=== PATIENT | male | born 1935 | race Caucasian/White ===

== ENCOUNTER 2017-09-10 03:02 | Inpatient (IN) | payer MEDICARE, MEDICAID ==
[~2017-09-10] VITALS: Ht 167.6 cm; Wt 77.6 kg
[2017-09-10 03:05] VITALS: BP 160/69
[2017-09-10 03:47] LABS: BASOPHILS % (AUTO) 0.6 % (0.0-2.0); EOSINOPHILS % (AUTO) 2.2 % (0.0-3.0); HEMATOCRIT 36.5 % (42.0-52.0); HEMOGLOBIN 12.4 G/DL (14.2-18.0); MEAN CORPUSCULAR VOLUME 94 FL (80-99); MONOCYTES % (AUTO) 7.4 % (1.0-10.0); NEUTROPHILS % (AUTO) 75.8 % (45.0-75.0); PLATELET COUNT 160 K/UL (150-450); RED BLOOD COUNT 3.87 M/UL (4.70-6.10); RED CELL DISTRIBUTION WIDTH 13.7 % (11.6-14.8); WHITE BLOOD COUNT 12.2 K/UL (4.8-10.8)
[2017-09-10 03:52] LABS: ANION GAP 8 mmol/L (5-15); BLOOD UREA NITROGEN 34 mg/dL (7-18); CALCIUM 9.1 MG/DL (8.5-10.1); CARBON DIOXIDE 26 MMOL/L (21-32); CHLORIDE 104 MMOL/L (98-107); POTASSIUM 3.8 MMOL/L (3.5-5.1); SODIUM 137 MMOL/L (136-145)
[2017-09-10 03:57] LABS: ALANINE AMINOTRANSFERASE 25 U/L (12-78); ALBUMIN 3.2 G/DL (3.4-5.0); ALBUMIN/GLOBULIN RATIO 1.1 (1.0-2.7); ALKALINE PHOSPHATASE 59 U/L (46-116); ASPARTATE AMINO TRANSFERASE 14 U/L (15-37); BILIRUBIN,TOTAL 0.2 MG/DL (0.2-1.0)
[2017-09-10] MEDS ORDERED: Morphine Sulfate 4mg/ml Inj IVP ONE (04:15)
[2017-09-10] MEDS ORDERED: OMEGA 3 FISH O1 EAC1 PO (04:53)
[2017-09-10] MEDS ORDERED: CRESTOR10 M2 ORAL (04:53)
[2017-09-10] MEDS ORDERED: LYRICA50 MG ORAL (04:53)
[2017-09-10] MEDS ORDERED: ISOSORBIDE MONO60 M1 PO (04:54)
[2017-09-10] MEDS ORDERED: CORTIZONE 1028 GM TP (04:54)
[2017-09-10] MEDS ORDERED: DIPHENHYDRAMINE25 M1 ORAL (04:54)
[2017-09-10] MEDS ORDERED: ASPIRIN81 MG ORAL (04:54)
[2017-09-10] MEDS ORDERED: FERROUS SULFAT325 MG ORAL (04:54)
[2017-09-10] MEDS ORDERED: HYDRALAZINE HCL50 MG ORAL (04:54)
[2017-09-10] MEDS ORDERED: LEVOTHYROXINE25 MCG ORAL (04:54)
[2017-09-10] MEDS ORDERED: ATENOLOL50 MG ORAL (04:54)
[2017-09-10] MEDS ORDERED: FUROSEMIDE20 M1 ORAL (04:54)
[2017-09-10] MEDS ORDERED: TRADJENTA5 MG PO (04:54)
[2017-09-10] MEDS ORDERED: ALLOPURINOL100 M1 ORAL (04:54)
[2017-09-10] MEDS ORDERED: AMLODIPINE BESY10 MG ORAL (04:54)
[2017-09-10] MEDS ORDERED: CYMBALTA30 MG ORAL (04:54)
[2017-09-10] MEDS ORDERED: TERAZOSIN HCL10 MG ORAL (04:54)
[2017-09-10] MEDS ORDERED: GLIMEPIRIDE4 MG ORAL (04:54)
[2017-09-10 05:00] VITALS: BP 135/66
[2017-09-10] MEDS ORDERED: Ciprofloxacin 500mg tab ORAL ONE (05:30)
--- NOTE | 2017-09-10 05:36 | Emergency Room Report ---
History of Present Illness General Chief Complaint: Abdominal Pain Source: Patient Present Illness HPI Is an 81-year-old male with a history diabetes, high blood pressure and coronary disease. He presents with chief complaint of weakness and near syncope. The last 3 days he had profuse watery diarrhea. No recent antibiotics. Abdominal cramps. He was on the toilet having diarrhea. He stood up, he felt lightheaded and had near syncopal episode. No loss of consciousness. Better when he lies flat. Per EMS he was hypotensive. Better now. Allergies: Coded Allergies: MORPHINE (Verified Allergy, Unknown, 09/10/17) Patient History Past Medical History: see triage record, old chart reviewed, DM, CAD Past Surgical History: other Pertinent Family History: none Social History: Denies: smoking Immunizations: other Reviewed Nursing Documentation: PMH: Agreed, PSxH: Agreed Nursing Documentation-PMH Hx Cardiac Problems: Yes Hx Hypertension: Yes Hx Diabetes: Yes Review of Systems Constitutional: Reports: weakness Eye: Denies: eye pain, blurred vision ENT: Denies: ear pain, nose congestion, throat swelling Respiratory: Denies: cough, shortness of breath Cardiovascular: Denies: chest pain, palpitations Gastrointestinal: Reports: abdominal pain, diarrhea, Denies: nausea, vomiting Musculoskeletal: Denies: back pain, joint pain Skin: Denies: rash Neurological: Denies: headache, numbness Endocrine: Denies: increased thirst, increased urine Hematologic/Lymphatic: Denies: easy bruising All Other Systems: negative except mentioned in HPI Physical Exam Vital Signs Date Time Temp Pulse Resp B/P (MAP) Pulse Ox O2 Delivery O2 Flow Rate FiO2 09/10/17 02:52 97.9 79 18 157/64 98 Room Air vitals with high blood pressure Sp02 EP Interpretation: reviewed, normal General Appearance: well appearing, no apparent distress, alert Head: normocephalic, atraumatic Eyes: bilateral eye PERRL, bilateral eye EOMI ENT: hearing grossly normal, normal pharynx Neck: full range of motion, supple, no meningismus Respiratory: chest non-tender, lungs clear, normal breath sounds Cardiovascular #1: regular rate, rhythm, no murmur Gastrointestinal: normal bowel sounds, no mass, no organomegaly, no bruit, non- distended, tenderness - Diffuse Musculoskeletal: back normal, gait/station normal, normal range of motion Psychiatric: mood/affect normal Skin: warm/dry Medical Decision Making Diagnostic Impression: Primary Impression: Colitis, acute Additional Impressions: Dehydration PAM (acute kidney injury) Protracted diarrhea ER Course Patient presents with protracted diarrhea and dehydration. Near syncope probably secondary to prostatic hypotension. He felt better now. CT scan showed possible sigmoiditis. Antibiotics given. Will admit for IV hydration. Lab Results Impression labs with elevated BUN AND CREATININE EKG Diagnostic Results Rate: normal Rhythm: NSR ST Segments: no acute changes Rhythm Strip Diag. Results Rhythm Strip Time: 05:35 EP Interpretation: yes Rate: 97 Rhythm: NSR, no PVC's, no ectopy CT/MRI/US Diagnostic Results CT/MRI/US Diagnostic Results : Imaging Test Ordered: CT abdomen and pelvis Impression Read by radiologist. Enlarged prostate gland. Moderate colonic diverticulosis. Mild circumferential wall thickening of the sigmoid and rectum. Last Vital Signs Date Time Temp Pulse Resp B/P (MAP) Pulse Ox O2 Delivery O2 Flow Rate FiO2 09/10/17 03:05 97.8 70 17 160/69 97 Room Air Status: improved Disposition: ADMITTED INPATIENT Condition: Serious Referrals: NON PHYSICIAN (PCP) VEL COSME M.D. Sep 10, 2017 05:36
[2017-09-10 06:01] LABS: BILIRUBIN, URINE NEGATIVE (NEGATIVE); GLUCOSE, URINE (UA) NEGATIVE (NEGATIVE); KETONES,URINE NEGATIVE (NEGATIVE); LEUKOCYTE ESTERASE ,URINE 3+ (NEGATIVE); NITRITE,URINE NEGATIVE (NEGATIVE); PH,URINE 5 (4.5-8.0); PROTEIN,URINE 3+ (NEGATIVE); UROBILINOGEN,URINE NORMAL MG/DL (0.0-1.0)
[2017-09-10] MEDS ORDERED: Ketorolac 30mg Inj IV PRN (06:15)
[2017-09-10] MEDS ORDERED: Nitroglycerin Subl 0.4mg tab SL PRN (06:15)
[2017-09-10] MEDS ORDERED: Mylanta II UD 30ml ORAL PRN (06:15)
[2017-09-10] MEDS ORDERED: Miralax 17gm pkt ORAL PRN (06:15)
[2017-09-10 06:19] LABS: APPEARANCE,URINE CLOUDY; COLOR,URINE YELLOW
[2017-09-10 06:20] VITALS: BP 145/62
[2017-09-10] MEDS: NovoLOG Insulin Flexpen SUBQ SCH ×4 (06:30→21:25)
[2017-09-10] MEDS: Heparin 5000 units/ml inj SUBQ SCH ×2 (09:00→21:00)
[2017-09-10] MEDS: DULoxetine 30mg cap ORAL SCH (09:45)
[2017-09-10] MEDS: Allopurinol 100mg Tab ORAL SCH ×2 (09:46→17:44)
[2017-09-10] MEDS: HydrALAZINE 10mg Tab ORAL SCH ×2 (09:47→17:44)
[2017-09-10] MEDS: Lyrica 50mg cap ORAL SCH ×2 (09:47→21:26)
--- NOTE | 2017-09-10 10:30 | GI Initial Consult Note ---
Denise Muniz N.P. 09/10/17 1030: History of Present Illness General Date patient seen: Sep 10, 2017 Time patient seen: 10:22 Reason for Hospitalization: Abdominal Pain Referring physician: JARRED ZHOU Reason for Consultation: ABDOMINAL PAIN Present Illness HPI Is an 81-year-old male with a history diabetes, high blood pressure and coronary disease. He presents with chief complaint of weakness and near syncope. The last 3 days he had profuse watery diarrhea. No recent antibiotics. Abdominal cramps. He was on the toilet having diarrhea. He stood up, he felt lightheaded and had near syncopal episode. No loss of consciousness. Better when he lies flat. Per EMS he was hypotensive. Better now. GI consulted for abdominal pain. Pt seen on floor, awake A&Ox4 NAD with no active s/sx of N/V. Patient had complaints of water diarrhea x 3 days he described as "black" and with seldom periods of noted red blood. He has a history of prostate surgery approximately 2 months ago. His last colonoscopy was 5 years ago with some found colonic polyps. APCT today shows sigmoid, rectal wall thickening. Denies any unintentional weight loss or changes in dietary habits. No recent travels. He presents today with mild leukocytosis, mild anemia, and renal insufficiency. Home Meds Reported Medications Amlodipine Besylate* (AMLODIPINE BESYLATE*) 10 Mg Tablet, 0.5 TAB ORAL BID, TAB 09/10/17 Allopurinol* (ALLOPURINOL*) 100 Mg Tablet, 100 MG ORAL BID, TAB 09/10/17 Diphenhydramine Hcl* (DIPHENHYDRAMINE HCL*) 25 Mg Capsule, 25 MG ORAL BID Y for Itching, #30 CAP 0 Refills 09/10/17 Hydrocortisone (CORTIZONE 10) 28 Gm Gel..gram., 28 GM TP DAILY, GM 09/10/17 Atenolol* (TENORMIN*) 50 Mg Tablet, 50 MG ORAL DAILY, TAB 09/10/17 Aspirin* (ASPIRIN*) 81 Mg Tab.chew, 81 MG ORAL DAILY, TAB 09/10/17 Linagliptin (TRADJENTA) 5 Mg Tablet, 0.5 TAB PO BID, TAB 09/10/17 Levothyroxine Sodium* (LEVOTHYROXINE SODIUM*) 25 Mcg Tablet, 1.5 TAB ORAL DAILY , TAB Take in the morning on an empty stomach, at least 30 minutes before food. 09/10/17 Isosorbide Mononitrate (ISOSORBIDE MONONITRATE ER) 60 Mg Tab.er.24h, 60 MG PO BID, TAB 09/10/17 Hydralazine Hcl* (HYDRALAZINE HCL*) 50 Mg Tablet, 2 TAB ORAL BID, TAB 09/10/17 Glimepiride* (GLIMEPIRIDE*) 4 Mg Tablet, 4 MG ORAL BID, TAB 09/10/17 Furosemide* (LASIX*) 20 Mg Tablet, 10 MG ORAL DAILY, TAB 09/10/17 Ferrous Sulfate* (FERROUS SULFATE*) 325 Mg Tablet, 325 MG ORAL DAILY, TAB 0 Refills 09/10/17 Duloxetine Hcl* (CYMBALTA*) 30 Mg Capsule.dr, 30 MG ORAL DAILY, CAP 09/10/17 Terazosin Hcl (TERAZOSIN HCL) 10 Mg Capsule, 10 MG ORAL DAILY, CAP 09/10/17 Rosuvastatin Calcium* (CRESTOR*) 10 Mg Tablet, 10 MG ORAL DAILY, TAB 09/10/17 Pregabalin (Lyrica) 50 Mg Capsule, 50 MG ORAL BID, CAP 09/10/17 [place]-3 Fatty Acids/Fish Oil (OMEGA 3 FISH OIL SOFTGEL) 1 Each Capsule.dr, 1 EACH PO, CAP 09/10/17 Med list reviewed/reconciled: Yes Allergies: Coded Allergies: MORPHINE (Verified Allergy, Unknown, 09/10/17) Patient History History Provided By: Patient, Medical Record PMH Narrative Past Medical History: see triage record, old chart reviewed, DM, CAD Past Surgical History: other Pertinent Family History: none Social History: Denies: smoking Immunizations: other Reviewed Nursing Documentation: PMH: Agreed, PSxH: Agreed Nursing Documentation-PMH Hx Cardiac Problems: Yes Hx Hypertension: Yes Hx Diabetes: Yes Review of Systems Constitutional: Reports: weakness Eye: Denies: eye pain, blurred vision ENT: Denies: ear pain, nose congestion, throat swelling Respiratory: Denies: cough, shortness of breath Cardiovascular: Denies: chest pain, palpitations Gastrointestinal: Reports: abdominal pain, diarrhea, Denies: nausea, vomiting Musculoskeletal: Denies: back pain, joint pain Skin: Denies: rash Neurological: Denies: headache, numbness Endocrine: Denies: increased thirst, increased urine Hematologic/Lymphatic: Denies: easy bruising All Other Systems: negative except mentioned in HPI Social History: Denies: smoking, alcohol use, drug use, other Review of Systems All Other Systems: negative except mentioned in HPI Physical Exam Vital Signs Date Time Temp Pulse Resp B/P (MAP) Pulse Ox O2 Delivery O2 Flow Rate FiO2 09/10/17 02:52 97.9 79 18 157/64 98 Room Air Sp02 EP Interpretation: reviewed, normal Labs Laboratory Tests Test 09/10/17 03:33 09/10/17 04:00 09/10/17 06:00 White Blood Count 12.2 K/UL (4.8-10.8) H Red Blood Count 3.87 M/UL (4.70-6.10) L Hemoglobin 12.4 G/DL (14.2-18.0) L Hematocrit 36.5 % (42.0-52.0) L Mean Corpuscular Volume 94 FL (80-99) Mean Corpuscular Hemoglobin 32.1 PG (27.0-31.0) H Mean Corpuscular Hemoglobin Concent 34.0 G/DL (32.0-36.0) Red Cell Distribution Width 13.7 % (11.6-14.8) Platelet Count 160 K/UL (150-450) Mean Platelet Volume 9.5 FL (6.5-10.1) Neutrophils (%) (Auto) 75.8 % (45.0-75.0) H Lymphocytes (%) (Auto) 14.0 % (20.0-45.0) L Monocytes (%) (Auto) 7.4 % (1.0-10.0) Eosinophils (%) (Auto) 2.2 % (0.0-3.0) Basophils (%) (Auto) 0.6 % (0.0-2.0) Sodium Level 137 MMOL/L (136-145) Potassium Level 3.8 MMOL/L (3.5-5.1) Chloride Level 104 MMOL/L (98-107) Carbon Dioxide Level 26 MMOL/L (21-32) Anion Gap 8 mmol/L (5-15) Blood Urea Nitrogen 34 mg/dL (7-18) H Creatinine 2.0 MG/DL (0.55-1.30) H Estimat Glomerular Filtration Rate mL/min (>60) Glucose Level 146 MG/DL (74-106) H Calcium Level 9.1 MG/DL (8.5-10.1) Total Bilirubin 0.2 MG/DL (0.2-1.0) Aspartate Amino Transf (AST/SGOT) 14 U/L (15-37) L Alanine Aminotransferase (ALT/SGPT) 25 U/L (12-78) Alkaline Phosphatase 59 U/L (46-116) Total Protein 6.2 G/DL (6.4-8.2) L Albumin 3.2 G/DL (3.4-5.0) L Globulin 3.0 g/dL Albumin/Globulin Ratio 1.1 (1.0-2.7) Lipase 120 U/L (73-393) Troponin I 0.010 ng/mL (0.000-0.056) Urine Color Yellow Urine Appearance Cloudy Urine pH 5 (4.5-8.0) Urine Specific [place] 1.015 (1.005-1.035) Urine Protein 3+ (NEGATIVE) H Urine Glucose (UA) Negative (NEGATIVE) Urine Ketones Negative (NEGATIVE) Urine Occult Blood 4+ (NEGATIVE) H Urine Nitrite Negative (NEGATIVE) Urine Bilirubin Negative (NEGATIVE) Urine Urobilinogen Normal MG/DL (0.0-1.0) Urine Leukocyte Esterase 3+ (NEGATIVE) H Urine RBC 60-80 /HPF (0 - 0) H Urine WBC Tntc /HPF (0 - 0) H Urine Squamous Epithelial Cells Few /LPF (NONE/OCC) Urine Bacteria Moderate /HPF (NONE) H General Appearance: well appearing, no apparent distress, alert Head: normocephalic EENT: PERRL/EOMI, normal ENT inspection Neck: supple Respiratory: normal breath sounds, no respiratory distress Cardiovascular: normal rate Gastrointestinal: normal inspection, non tender, soft, normal bowel sounds, non -distended Rectal: deferred Genitourinary: deferred Musculoskeletal: normal inspection, back normal Neurologic: normal inspection, alert, oriented x3, responsive Psychiatric: normal inspection, judgement/insight normal, memory normal Skin: normal inspection, normal color, no rash, warm/dry, palpation normal, well hydrated Lymphatic: normal inspection, no adenopathy Current Medications Current Medications Medications (Trade) Dose Ordered Sig/Joel Route PRN Reason Start Time Stop Time Status Last Admin Dose Admin Acetaminophen (Tylenol) 650 mg Q4H PRN ORAL fever 09/10/17 06:15 10/10/17 06:14 Al Hydroxide/Mg Hydroxide (Mylanta II) 30 ml Q6H PRN ORAL dyspepsia 09/10/17 06:15 10/10/17 06:14 Allopurinol (Zyloprim) 100 mg BID ORAL 09/10/17 09:00 10/10/17 08:59 09/10/17 09:46 Amlodipine Besylate (Norvasc) 5 mg DAILY ORAL 09/10/17 09:00 10/10/17 08:59 09/10/17 09:46 Atenolol (Tenormin) 50 mg DAILY ORAL 09/10/17 09:00 10/10/17 08:59 09/10/17 09:45 Dextrose (Dextrose 50%) STAT PRN IV Hypoglycemia 09/10/17 06:15 10/10/17 06:14 Diphenhydramine HCl (Benadryl) 25 mg Q6H PRN ORAL Itching/Pruritis 09/10/17 06:15 10/10/17 06:14 Duloxetine HCl (Cymbalta) 30 mg DAILY ORAL 09/10/17 09:00 10/10/17 08:59 09/10/17 09:45 Heparin Sodium (Porcine) (Heparin 5000 units/ml) 5,000 units EVERY 12 HOURS SUBQ 09/10/17 09:00 10/10/17 08:59 Hydralazine HCl (Apresoline) 20 mg BID ORAL 09/10/17 09:00 10/10/17 08:59 09/10/17 09:47 Insulin Aspart (NovoLOG) BEFORE MEALS AND HS SUBQ 09/10/17 06:30 10/10/17 06:29 Ketorolac Tromethamine (Toradol 30mg) 30 mg Q6H PRN IV moderate pian 4-6 09/10/17 06:15 09/15/17 06:14 UNV Levothyroxine Sodium (Synthroid) 75 mcg DAILY@0630 ORAL 09/10/17 06:30 10/10/17 06:29 Nitroglycerin (Ntg) 0.4 mg Q5M X 3 DOSES PRN SL Prn Chest Pain 09/10/17 06:15 10/10/17 06:14 Ondansetron HCl (Zofran) 4 mg Q6H PRN IVP Nausea & Vomiting 09/10/17 06:15 10/10/17 06:14 Polyethylene Glycol (Miralax) 17 gm HSPRN PRN ORAL Constipation 09/10/17 06:15 10/10/17 06:14 Pregabalin (Lyrica) 50 mg Q12HR ORAL 09/10/17 09:00 10/10/17 08:59 09/10/17 09:47 Sodium Chloride 1,000 ml @ 50 mls/hr Q20H IV 09/10/17 06:03 10/10/17 06:02 09/10/17 06:46 Temazepam (Restoril) 15 mg HSPRN PRN ORAL Insomnia 09/10/17 06:15 09/17/17 06:14 GI: Plan Problems: (1) Colitis, acute (2) Protracted diarrhea (3) Dehydration Plan recommend colonoscopy, patient refuses at this time and request his POC be discussed with his primary care adv to renal diet after imaging studies >> renal/abdominal U/S electrolyte correction send for stool studies, cdiff anemia work up OB stool r/o GI bleed monitor H&H, prn transfusions ppi fu labs Discussed with Dr. Meyer. Thank you for this patient referral, we will follow. ISABELLE MEYER 09/13/17 1517: History of Present Illness General Reason for Hospitalization: Abdominal Pain Present Illness Home Meds Reported Medications Amlodipine Besylate* (AMLODIPINE BESYLATE*) 10 Mg Tablet, 0.5 TAB ORAL BID, TAB 09/10/17 Allopurinol* (ALLOPURINOL*) 100 Mg Tablet, 100 MG ORAL BID, TAB 09/10/17 Diphenhydramine Hcl* (DIPHENHYDRAMINE HCL*) 25 Mg Capsule, 25 MG ORAL BID Y for Itching, #30 CAP 0 Refills 09/10/17 Hydrocortisone (CORTIZONE 10) 28 Gm Gel..gram., 28 GM TP DAILY, GM 09/10/17 Atenolol* (TENORMIN*) 50 Mg Tablet, 50 MG ORAL DAILY, TAB 09/10/17 Aspirin* (ASPIRIN*) 81 Mg Tab.chew, 81 MG ORAL DAILY, TAB 09/10/17 Linagliptin (TRADJENTA) 5 Mg Tablet, 0.5 TAB PO BID, TAB 09/10/17 Levothyroxine Sodium* (LEVOTHYROXINE SODIUM*) 25 Mcg Tablet, 1.5 TAB ORAL DAILY , TAB Take in the morning on an empty stomach, at least 30 minutes before food. 09/10/17 Isosorbide Mononitrate (ISOSORBIDE MONONITRATE ER) 60 Mg Tab.er.24h, 60 MG PO BID, TAB 09/10/17 Hydralazine Hcl* (HYDRALAZINE HCL*) 50 Mg Tablet, 2 TAB ORAL BID, TAB 09/10/17 Glimepiride* (GLIMEPIRIDE*) 4 Mg Tablet, 4 MG ORAL BID, TAB 09/10/17 Furosemide* (LASIX*) 20 Mg Tablet, 10 MG ORAL DAILY, TAB 09/10/17 Ferrous Sulfate* (FERROUS SULFATE*) 325 Mg Tablet, 325 MG ORAL DAILY, TAB 0 Refills 09/10/17 Duloxetine Hcl* (CYMBALTA*) 30 Mg Capsule.dr, 30 MG ORAL DAILY, CAP 09/10/17 Terazosin Hcl (TERAZOSIN HCL) 10 Mg Capsule, 10 MG ORAL DAILY, CAP 09/10/17 Rosuvastatin Calcium* (CRESTOR*) 10 Mg Tablet, 10 MG ORAL DAILY, TAB 09/10/17 Pregabalin (Lyrica) 50 Mg Capsule, 50 MG ORAL BID, CAP 09/10/17 [place]-3 Fatty Acids/Fish Oil (OMEGA 3 FISH OIL SOFTGEL) 1 Each Capsule.dr, 1 EACH PO, CAP 09/10/17 Allergies: Coded Allergies: MORPHINE (Verified Allergy, Unknown, 09/10/17) GI: Plan Plan The patient was seen and examined at bedside and all new and available data was reviewed in the patients chart. I agree with the above findings, impression and plan. (Patient seen earlier today. Signature stamp does not reflect patient encounter time.). - [facility] Johnnie N.PStacy Sep 10, 2017 10:30 ISABELLE MEYER Sep 13, 2017 15:17
[2017-09-10 11:03] LABS: CREATINE KINASE 97 U/L (26-308)
--- NOTE | 2017-09-10 14:25 | Diagnostic Imaging Report ---
Indication: Abdominal pain x3 days Technique: Spiral acquisitions obtained through the abdomen and pelvis. No oral contrast utilized, per emergency room physician request No IV contrast utilized, per referring physician request.. Multiplanar reconstructions were generated. Total dose length product 883.19 mGycm. CTDIvol(s) 16.14 mGy. Dose reduction achieved using automated exposure control Comparison: None Findings: Findings is normal. There is colonic diverticulosis. No definite evidence of acute diverticulitis. No small bowel distention. No free or loculated peritoneal air or fluid. There is a small sliding hiatal hernia. The remainder of the stomach is unremarkable. The there is a small duodenal diverticulum. Lack of IV contrast limits assessment of the solid organs. The liver, gallbladder, bile ducts, pancreas, spleen, adrenals are unremarkable. The kidneys demonstrate multiple cysts. There are also multiple masses that demonstrate nonspecific soft tissue attenuation, only one of which, a small one in the right upper pole, is definitively hyperdense. No pelvic mass or adenopathy. The prostate is markedly enlarged, measuring 7.4 cm transverse by 6.1 cm AP by 7.4 cm craniocaudad. There is a saccular infrarenal abdominal aortic aneurysm, that measures 5.1 cm transverse dimension. There are no findings to suggest leakage or rupture. The included lung bases demonstrate posterior dependent atelectatic changes. The heart is enlarged. The bones demonstrate degenerative spondylosis changes. There is slight anterior offset of L4 on L5. Impression: Colonic diverticulosis. No evidence of diverticulitis 5.1 cm saccular infrarenal abdominal aortic aneurysm Prostatomegaly Bilateral renal cysts. Bilateral renal soft tissue attenuation lesions which are most likely benign definitively hyperdense cyst. Further evaluation with ultrasound recommended. Cardiomegaly Degenerative spondylosis changes This agrees with the preliminary interpretation provided overnight by [employer] teleradiology service. The CT scanner at [facility] is accredited by the [employer] and the scans are performed using protocols designed to limit radiation exposure to as low as reasonably achievable to attain images of sufficient resolution adequate for diagnostic evaluation.
[2017-09-10 16:11] VITALS: BP 136/70
--- NOTE | 2017-09-10 16:29 | Cardiology Report ---
APPROVED REPORT EKG Measurement Heart [id number] ME 240P [id number] Sinus rhythm with 1st degree AV block with premature supraventricular complexes Inferior infarct, age undetermined Abnormal ECG
--- NOTE | 2017-09-10 20:45 | History & Physical ---
History and Physical History & Physicial Dictated for Int Med-Dr [id number] Caal Sep 10, 2017 20:45
--- NOTE | 2017-09-10 22:37 | Consultation ---
History of Present Illness General Date patient seen: Sep 10, 2017 Chief Complaint: Abdominal Pain Referring physician: JARRED ZHOU Reason for Consultation: inpatient manangement Present Illness HPI 81-year-old male with a history diabetes, high blood pressure and coronary disease. He presents with chief complaint of weakness and near syncope. The last 3 days he had profuse watery diarrhea and Abdominal cramps. He was on the toilet having diarrhea. He stood up, he felt lightheaded and had near syncopal episode. No loss of consciousness. Better when he lies flat. Per EMS he was hypotensive in the field. Pt is admitted because of hypotension and diarrhea and ATN. Allergies: Coded Allergies: MORPHINE (Verified Allergy, Unknown, 09/10/17) Medication History Scheduled Allopurinol* (Allopurinol*), 100 MG ORAL BID, (Reported) Amlodipine Besylate* (Amlodipine Besylate*), 0.5 TAB ORAL BID, (Reported) Aspirin* (Aspirin*), 81 MG ORAL DAILY, (Reported) Atenolol* (Tenormin*), 50 MG ORAL DAILY, (Reported) Duloxetine Hcl* (Cymbalta*), 30 MG ORAL DAILY, (Reported) Ferrous Sulfate* (Ferrous Sulfate*), 325 MG ORAL DAILY, (Reported) Furosemide* (Lasix*), 10 MG ORAL DAILY, (Reported) Glimepiride* (Glimepiride*), 4 MG ORAL BID, (Reported) Hydralazine Hcl* (Hydralazine Hcl*), 2 TAB ORAL BID, (Reported) Hydrocortisone (Cortizone 10), 28 GM TP DAILY, (Reported) Isosorbide Mononitrate (Isosorbide Mononitrate Er), 60 MG PO BID, (Reported) Levothyroxine Sodium* (Levothyroxine Sodium*), 1.5 TAB ORAL DAILY, (Reported) Linagliptin (Tradjenta), 0.5 TAB PO BID, (Reported) Pregabalin (Lyrica), 50 MG ORAL BID, (Reported) Rosuvastatin Calcium* (Crestor*), 10 MG ORAL DAILY, (Reported) Terazosin Hcl (Terazosin Hcl), 10 MG ORAL DAILY, (Reported) Scheduled PRN Diphenhydramine Hcl* (Diphenhydramine Hcl*), 25 MG ORAL BID PRN for Itching, ( Reported) Miscellaneous Medications [place]-3 Fatty Acids/Fish Oil ([place] 3 Fish Oil Softgel), 1 EACH PO, (Reported) Patient History Healthcare decision maker Resuscitation status Full Code Advanced Directive on File No Past Medical/Surgical History Past Medical/Surgical History: (1) Abdominal aortic aneurysm (AAA) 3.0 cm to 5.5 cm in diameter in male (2) HTN (hypertension) (3) Hypothyroidism (4) Hypercholesteremia (5) Diabetes mellitus, type II (6) BPH (benign prostatic hyperplasia) Review of Systems Constitutional: Reports: malaise, weakness Gastrointestinal: Reports: diarrhea, vomiting All Other Systems: negative except mentioned in HPI Physical Exam General Appearance: WD/WN Lines, tubes and drains: peripheral HEENT: normocephalic, atraumatic Neck: non-tender, normal alignment Respiratory/Chest: chest wall non-tender, lungs clear Cardiovascular/Chest: normal peripheral pulses, normal rate Abdomen: normal bowel sounds, non tender Extremities: normal range of motion, non-tender Last 24 Hour Vital Signs Date Time Temp Pulse Resp B/P (MAP) Pulse Ox O2 Delivery O2 Flow Rate FiO2 09/10/17 17:44 136/70 09/10/17 16:11 97.3 89 21 136/70 97 Room Air 09/10/17 09:47 145/62 09/10/17 09:46 93 145/62 09/10/17 09:45 93 145/62 09/10/17 07:43 97.9 93 22 145/62 99 Room Air 09/10/17 06:20 97.9 93 22 145/62 99 Room Air 09/10/17 05:00 90 25 135/66 98 Room Air 09/10/17 03:05 97.8 70 17 160/69 97 Room Air 09/10/17 02:52 97.9 79 18 157/64 98 Room Air Intake and Output 09/09/17 09/10/17 18:59 06:59 Intake Total 1100 ml Output Total 200 ml Balance 900 ml IV Total 1100 ml Output Urine Total 200 ml # Voids 1 Laboratory Tests Test 09/10/17 03:33 09/10/17 04:00 09/10/17 06:00 09/10/17 10:52 White Blood Count 12.2 K/UL (4.8-10.8) H Red Blood Count 3.87 M/UL (4.70-6.10) L Hemoglobin 12.4 G/DL (14.2-18.0) L Hematocrit 36.5 % (42.0-52.0) L Mean Corpuscular Volume 94 FL (80-99) Mean Corpuscular Hemoglobin 32.1 PG (27.0-31.0) H Mean Corpuscular Hemoglobin Concent 34.0 G/DL (32.0-36.0) Red Cell Distribution Width 13.7 % (11.6-14.8) Platelet Count 160 K/UL (150-450) Mean Platelet Volume 9.5 FL (6.5-10.1) Neutrophils (%) (Auto) 75.8 % (45.0-75.0) H Lymphocytes (%) (Auto) 14.0 % (20.0-45.0) L Monocytes (%) (Auto) 7.4 % (1.0-10.0) Eosinophils (%) (Auto) 2.2 % (0.0-3.0) Basophils (%) (Auto) 0.6 % (0.0-2.0) Sodium Level 137 MMOL/L (136-145) Potassium Level 3.8 MMOL/L (3.5-5.1) Chloride Level 104 MMOL/L (98-107) Carbon Dioxide Level 26 MMOL/L (21-32) Anion Gap 8 mmol/L (5-15) Blood Urea Nitrogen 34 mg/dL (7-18) H Creatinine 2.0 MG/DL (0.55-1.30) H Estimat Glomerular Filtration Rate mL/min (>60) Glucose Level 146 MG/DL (74-106) H Calcium Level 9.1 MG/DL (8.5-10.1) Total Bilirubin 0.2 MG/DL (0.2-1.0) Aspartate Amino Transf (AST/SGOT) 14 U/L (15-37) L Alanine Aminotransferase (ALT/SGPT) 25 U/L (12-78) Alkaline Phosphatase 59 U/L (46-116) Total Protein 6.2 G/DL (6.4-8.2) L Albumin 3.2 G/DL (3.4-5.0) L Globulin 3.0 g/dL Albumin/Globulin Ratio 1.1 (1.0-2.7) Lipase 120 U/L (73-393) Uric Acid 5.7 MG/DL (2.6-7.2) Total Creatine Kinase 97 U/L (26-308) Troponin I 0.010 ng/mL (0.000-0.056) Urine Color Yellow Urine Appearance Cloudy Urine pH 5 (4.5-8.0) Urine Specific [place] 1.015 (1.005-1.035) Urine Protein 3+ (NEGATIVE) H Urine Glucose (UA) Negative (NEGATIVE) Urine Ketones Negative (NEGATIVE) Urine Occult Blood 4+ (NEGATIVE) H Urine Nitrite Negative (NEGATIVE) Urine Bilirubin Negative (NEGATIVE) Urine Urobilinogen Normal MG/DL (0.0-1.0) Urine Leukocyte Esterase 3+ (NEGATIVE) H Urine RBC 60-80 /HPF (0 - 0) H Urine WBC Tntc /HPF (0 - 0) H Urine Squamous Epithelial Cells Few /LPF (NONE/OCC) Urine Bacteria Moderate /HPF (NONE) H Stool Occult Blood Negative (NEGATIVE) Height (Feet): 5 Height (Inches): 6.00 Weight (Pounds): 171 Medications Current Medications Medications (Trade) Dose Ordered Sig/Joel Route PRN Reason Start Time Stop Time Status Last Admin Dose Admin Acetaminophen (Tylenol) 650 mg Q4H PRN ORAL fever 09/10/17 06:15 10/10/17 06:14 Acetaminophen (Tylenol) 650 mg Q4H PRN ORAL For Pain 09/10/17 13:00 10/10/17 12:59 Al Hydroxide/Mg Hydroxide (Mylanta II) 30 ml Q6H PRN ORAL dyspepsia 09/10/17 06:15 10/10/17 06:14 Allopurinol (Zyloprim) 100 mg BID ORAL 09/10/17 09:00 10/10/17 08:59 09/10/17 17:44 Amlodipine Besylate (Norvasc) 5 mg DAILY ORAL 09/10/17 09:00 10/10/17 08:59 09/10/17 09:46 Atenolol (Tenormin) 50 mg DAILY ORAL 09/10/17 09:00 10/10/17 08:59 09/10/17 09:45 Dextrose (Dextrose 50%) STAT PRN IV Hypoglycemia 09/10/17 06:15 10/10/17 06:14 Diphenhydramine HCl (Benadryl) 25 mg Q6H PRN ORAL Itching/Pruritis 09/10/17 06:15 10/10/17 06:14 Duloxetine HCl (Cymbalta) 30 mg DAILY ORAL 09/10/17 09:00 10/10/17 08:59 09/10/17 09:45 Heparin Sodium (Porcine) (Heparin 5000 units/ml) 5,000 units EVERY 12 HOURS SUBQ 09/10/17 09:00 10/10/17 08:59 Hydralazine HCl (Apresoline) 20 mg BID ORAL 09/10/17 09:00 10/10/17 08:59 09/10/17 17:44 Insulin Aspart (NovoLOG) BEFORE MEALS AND HS SUBQ 09/10/17 06:30 10/10/17 06:29 09/10/17 21:25 Levothyroxine Sodium (Synthroid) 75 mcg DAILY@0630 ORAL 09/10/17 06:30 10/10/17 06:29 Nitroglycerin (Ntg) 0.4 mg Q5M X 3 DOSES PRN SL Prn Chest Pain 09/10/17 06:15 10/10/17 06:14 Ondansetron HCl (Zofran) 4 mg Q6H PRN IVP Nausea & Vomiting 09/10/17 06:15 10/10/17 06:14 Polyethylene Glycol (Miralax) 17 gm HSPRN PRN ORAL Constipation 09/10/17 06:15 10/10/17 06:14 Pregabalin (Lyrica) 50 mg Q12HR ORAL 09/10/17 09:00 10/10/17 08:59 09/10/17 21:26 Sodium Chloride 1,000 ml @ 50 mls/hr Q20H IV 09/10/17 06:03 10/10/17 06:02 09/10/17 06:46 Temazepam (Restoril) 15 mg HSPRN PRN ORAL Insomnia 09/10/17 06:15 09/17/17 06:14 09/10/17 22:34 Assessment/Plan Problem List: (1) PAM (acute kidney injury) ICD Codes: N17.9 - Acute kidney failure, unspecified SNOMED: 75406535 (2) Protracted diarrhea ICD Codes: K52.9 - Noninfective gastroenteritis and colitis, unspecified SNOMED: 099078917 (3) Diverticulosis ICD Codes: K57.90 - Diverticulosis of intestine, part unspecified, without perforation or abscess without bleeding SNOMED: 55996539 (4) Diabetes mellitus, type II ICD Codes: E11.9 - Type 2 diabetes mellitus without complications SNOMED: 44332568 (5) Abdominal aortic aneurysm (AAA) 3.0 cm to 5.5 cm in diameter in male ICD Codes: I71.4 - Abdominal aortic aneurysm, without rupture SNOMED: 955600492 (6) HTN (hypertension) ICD Codes: I10 - Essential (primary) hypertension SNOMED: 45772885 (7) Hypothyroidism ICD Codes: E03.9 - Hypothyroidism, unspecified SNOMED: 35846366 Assessment/Plan iv fluids check stool cultures GI evaluatin check electrolytes Urology evaluation dvt prophylaxis ADAM SILVESTRE Sep 10, 2017 22:37
--- NOTE | 2017-09-10 23:45 | History and Physical Report ---
DATE OF ADMISSION: 09/10/2017 CHIEF COMPLAINT: The patient is an 81-year-old white male, presents with chief complaint of diarrhea and near syncope. HISTORY OF PRESENT ILLNESS: Began three days prior to admission. The patient began to have watery diarrhea. The patient had multiple bowel movements daily. The patient was complaining of increasing weakness. The patient almost passed out. The patient presented to [place] emergency room. The patient was found to be hypotensive. The patient was admitted for dehydration and diarrhea. REVIEW OF SYSTEMS: CONSTITUTIONAL: The patient denies weight loss or weight gain. The patient denies fevers or chills HEENT: The patient denies ear or throat pain. The patient denies headache. CARDIOVASCULAR: The patient denies palpitations or chest pain. CHEST: The patient denies wheezes or shortness of breath. ABDOMEN: The patient complains of diarrhea as above. The patient denies nausea, vomiting, or constipation. GENITOURINARY: The patient denies dysuria or increased frequency of urination. NEUROMUSCULAR: The patient denies seizures or generalized weakness. PAST MEDICAL HISTORY: Significant for: 1. Hypertension. 2. Diabetes type 2. 3. Hypothyroidism. 4. Hypercholesterolemia. 5. Depression. PAST SURGICAL HISTORY: The patient denies. CURRENT MEDICATIONS: 1. Allopurinol 100 mg p.o. twice daily. 2. Amlodipine 10 mg one half tablet p.o. twice daily. 3. Aspirin 81 mg p.o. daily. 4. Atenolol 50 mg p.o. daily. 5. Cymbalta 30 mg p.o. daily. 6. Iron sulfate 325 mg p.o. daily. 7. Lasix 10 mg p.o. daily. 8. Glimepiride 4 mg p.o. twice daily. 9. Hydralazine 50 mg p.o. twice daily. 10. Cortisone as needed. 11. Isosorbide mononitrate 60 mg p.o. twice daily. 12. Levoxyl 25 mcg one and half tablets p.o. daily. 13. Tradjenta 5 mg by mouth one and half tablet p.o. twice daily. 14. Lyrica 50 mg p.o. twice daily. 15. Crestor 10 mg p.o. daily. 16. Terazosin 10 mg p.o. daily. ALLERGIES: To morphine. SOCIAL HISTORY: The patient is single. The patient denies tobacco or alcohol use. PHYSICAL EXAMINATION: VITAL SIGNS: Temperature 97.9, respirations 22, pulse 93, and blood pressure 145/62. GENERAL: The patient is well-developed and well-nourished elderly white male, in no apparent distress. HEENT: Eyes, pupils are equal and responsive to light and accommodation. Extraocular movements are intact. NECK: Supple without lymphadenopathy. CHEST: Lungs are clear to auscultation bilaterally without wheezes or rales. CARDIOVASCULAR: Regular rhythm and rate. S1, S2 normal without murmurs, rubs, or gallops. ABDOMEN: Soft, distended with decreased bowel sounds. No evidence of hepatosplenomegaly. Currently, no rebound or guarding noted. EXTREMITIES: Negative for clubbing, cyanosis, or edema. RECTAL/GENITAL: Refused. NEUROLOGIC: Cranial nerves II through XII are grossly intact without focal deficits. Motor strength is 5/5 bilaterally. Deep tendon reflexes 2+ plantar. LABORATORY AND DIAGNOSTIC DATA: Laboratory studies, WBC 12.2, hemoglobin 12.4, hematocrit 36.5, and platelets . Sodium 137, potassium 3.8, chloride 104, CO2 26, BUN 34, creatinine 2.0, and glucose 146. A CT scan of the abdomen showed diverticulosis without diverticulitis. ASSESSMENT: This is an 81-year-old white male with, 1. Near syncope. 2. Diarrhea. 3. Dehydration. 4. Diverticulosis. 5. Renal failure. 6. Hypertension. 7. Diabetes type 2. 8. Hypothyroidism. 9. Hypercholesterolemia. IMPRESSION: 1. Diarrhea. Gastroenterology consultation has been obtained with Dr. Lester Richards. A colonoscopy has been ordered. We will follow recommendations of Gastroenterology. Stool studies are pending. 2. Renal failure. A Nephrology consultation has been obtained with Dr. Pyle. 3. Dehydration. The patient is receiving intravenous fluids. 4. Hypertension. Continue amlodipine and atenolol as above. 5. Diabetes type 2. The patient has been started on a regular insulin sliding scale. 6. Hypothyroidism. Continue Levoxyl as above. 7. Hypercholesteremia. Continue Crestor as above. 8. Depression. Continue Cymbalta as above. Moises Kala Schultz DR: LYNN JOB#: [id number] CC:
[2017-09-11] MEDS: NovoLOG Insulin Flexpen SUBQ SCH ×4 (06:30→20:22)
[2017-09-11 08:18] LABS: BASOPHILS % (AUTO) 0.7 % (0.0-2.0); EOSINOPHILS % (AUTO) 3.4 % (0.0-3.0); HEMATOCRIT 35.4 % (42.0-52.0); HEMOGLOBIN 12.1 G/DL (14.2-18.0); LYMPHOCYTES % (AUTO) 20.1 % (20.0-45.0); MEAN CORPUSCULAR VOLUME 95 FL (80-99); MONOCYTES % (AUTO) 11.7 % (1.0-10.0); NEUTROPHILS % (AUTO) 64.2 % (45.0-75.0); PLATELET COUNT 152 K/UL (150-450); RED BLOOD COUNT 3.74 M/UL (4.70-6.10); RED CELL DISTRIBUTION WIDTH 13.2 % (11.6-14.8); WHITE BLOOD COUNT 7.7 K/UL (4.8-10.8)
[2017-09-11 08:20] VITALS: BP 161/68
[2017-09-11 08:51] LABS: PHOSPHORUS 2.9 MG/DL (2.5-4.9)
[2017-09-11 08:58] LABS: ALANINE AMINOTRANSFERASE 20 U/L (12-78); ALBUMIN 2.9 G/DL (3.4-5.0); ALBUMIN/GLOBULIN RATIO 0.9 (1.0-2.7); ALKALINE PHOSPHATASE 56 U/L (46-116); AMYLASE 71 U/L (25-115); ANION GAP 6 mmol/L (5-15); ASPARTATE AMINO TRANSFERASE 13 U/L (15-37); BILIRUBIN,TOTAL 0.5 MG/DL (0.2-1.0); BLOOD UREA NITROGEN 26 mg/dL (7-18); CALCIUM 9.1 MG/DL (8.5-10.1); CARBON DIOXIDE 26 MMOL/L (21-32); CHLORIDE 104 MMOL/L (98-107); CREATININE 1.8 MG/DL (0.55-1.30); FERRITIN 126 NG/ML (8-388); POTASSIUM 4.1 MMOL/L (3.5-5.1); SODIUM 135 MMOL/L (136-145)
[2017-09-11] MEDS: Heparin 5000 units/ml inj SUBQ SCH (09:00)
[2017-09-11] MEDS: Lyrica 50mg cap ORAL SCH ×2 (09:11→20:19)
[2017-09-11] MEDS: Allopurinol 100mg Tab ORAL SCH ×2 (09:11→17:59)
[2017-09-11] MEDS: DULoxetine 30mg cap ORAL SCH (09:12)
[2017-09-11] MEDS: HydrALAZINE 10mg Tab ORAL SCH ×2 (09:12→18:08)
[2017-09-11 10:42] LABS: % IRON SATURATION 10 % (15-50); IRON 22 ug/dL (50-175); TOTAL IRON BINDING CAPACITY 227 ug/dL (250-450)
[2017-09-11 11:12] LABS: APPEARANCE,URINE SLIGHTLY CLOUDY; BILIRUBIN, URINE NEGATIVE (NEGATIVE); COLOR,URINE PALE YELLOW; GLUCOSE, URINE (UA) NEGATIVE (NEGATIVE); KETONES,URINE NEGATIVE (NEGATIVE); LEUKOCYTE ESTERASE ,URINE 3+ (NEGATIVE); NITRITE,URINE NEGATIVE (NEGATIVE); PH,URINE 6 (4.5-8.0); PROTEIN,URINE 3+ (NEGATIVE); UROBILINOGEN,URINE NORMAL MG/DL (0.0-1.0)
--- NOTE | 2017-09-11 11:40 | Pulmonology Progress Note ---
Assessment/Plan Problems: (1) Colitis, acute (2) Severe anemia (3) BPH (benign prostatic hyperplasia) (4) PAM (acute kidney injury) (5) Protracted diarrhea (6) Dehydration Assessment/Plan iv fluids iv abx Urology called GI evaluation dvt prophylaxis check stool Subjective ROS Limited/Unobtainable: No Constitutional: Reports: no symptoms HEENT: Repors: no symptoms Respiratory: Reports: no symptoms Allergies: Coded Allergies: MORPHINE (Verified Allergy, Unknown, 09/10/17) Objective Last 24 Hour Vital Signs Date Time Temp Pulse Resp B/P (MAP) Pulse Ox O2 Delivery O2 Flow Rate FiO2 09/11/17 09:12 161/68 09/11/17 09:12 63 161/68 09/11/17 09:12 63 161/68 09/11/17 08:20 98.1 63 19 161/68 Room Air 09/10/17 17:44 136/70 09/10/17 16:11 97.3 89 21 136/70 97 Room Air Intake and Output 09/10/17 09/11/17 19:00 07:00 Intake Total 240 ml Output Total 250 ml 450 ml Balance -250 ml -210 ml Intake Oral 240 ml Output Urine Total 250 ml 450 ml # Voids 1 # Bowel Movements 2 2 Objective General Appearance: WN/WD HEENT: normocephalic, atraumatic Respiratory/Chest: chest wall non-tender, normal breath sounds Cardiovascular: normal peripheral pulses, normal rate Abdomen: soft, non tender, no organomegaly Genitourinary: normal external genitalia Extremities: no clubbing Skin: no rash, no lesions Neurologic/Psychiatric: clinical data manager II-XII grossly normal, Lymphatic: no neck adenopathy Microbiology Date/Time Source Procedure Growth Status 09/10/17 09:30 Stool Clostridium difficile Toxin Assay - Final Complete 09/10/17 06:00 Urine,Clean Catch Urine Culture - Preliminary NO GROWTH Resulted Laboratory Tests 09/11/17 07:35: Prothrombin Time 10.9, Prothromb Time International Ratio 1.0, Activated Partial Thromboplast Time 37H 09/11/17 07:40: White Blood Count 7.7, Red Blood Count 3.74L, Hemoglobin 12.1L, Hematocrit 35.4L , Mean Corpuscular Volume 95, Mean Corpuscular Hemoglobin 32.3H, Mean Corpuscular Hemoglobin Concent 34.2, Red Cell Distribution Width 13.2, Platelet Count 152, Mean Platelet Volume 9.1, Neutrophils (%) (Auto) 64.2, Lymphocytes (% ) (Auto) 20.1, Monocytes (%) (Auto) 11.7H, Eosinophils (%) (Auto) 3.4H, Basophils (%) (Auto) 0.7, Erythrocyte Sedimentation Rate 41H, Reticulocyte Count [Pending], Sodium Level 135L, Potassium Level 4.1, Chloride Level 104, Carbon Dioxide Level 26, Anion Gap 6, Blood Urea Nitrogen 26H, Creatinine 1.8H, Estimat Glomerular Filtration Rate , Glucose Level 90, Hemoglobin A1c 7.0H, Calcium Level 9.1, Phosphorus Level 2.9, Magnesium Level 2.1, Iron Level 22L, Total Iron Binding Capacity 227L, Percent Iron Saturation 10L, Unsaturated Iron Binding 205, Ferritin 126, Total Bilirubin 0.5, Aspartate Amino Transf (AST/SGOT ) 13L, Alanine Aminotransferase (ALT/SGPT) 20, Alkaline Phosphatase 56, Total Protein 6.0L, Albumin 2.9L, Globulin 3.1, Albumin/Globulin Ratio 0.9L, Amylase Level 71, Lipase 86, Vitamin B12 Level 519, Folate 14.5, Thyroid Stimulating Hormone (TSH) 1.990, Free Thyroxine 0.99 09/11/17 09:30: Urine Color Pale yellow, Urine Appearance Slightly cloudy, Urine pH 6, Urine Specific [place] 1.015, Urine Protein 3+H, Urine Glucose (UA) Negative, Urine Ketones Negative, Urine Occult Blood 4+H, Urine Nitrite Negative, Urine Bilirubin Negative, Urine Urobilinogen Normal, Urine Leukocyte Esterase 3+H, Urine RBC [Pending], Urine WBC [Pending], Urine Squamous Epithelial Cells [ Pending], Urine Bacteria [Pending], Urine Eosinophils [Pending], Urine Random Sodium [Pending], Urine Potassium Timed [Pending] Current Medications Medications (Trade) Dose Ordered Sig/Joel Route PRN Reason Start Time Stop Time Status Last Admin Dose Admin Acetaminophen (Tylenol) 650 mg Q4H PRN ORAL fever 09/10/17 06:15 10/10/17 06:14 Acetaminophen (Tylenol) 650 mg Q4H PRN ORAL For Pain 09/10/17 13:00 10/10/17 12:59 Al Hydroxide/Mg Hydroxide (Mylanta II) 30 ml Q6H PRN ORAL dyspepsia 09/10/17 06:15 10/10/17 06:14 Allopurinol (Zyloprim) 100 mg BID ORAL 09/10/17 09:00 10/10/17 08:59 09/11/17 09:11 Amlodipine Besylate (Norvasc) 5 mg DAILY ORAL 09/10/17 09:00 10/10/17 08:59 09/11/17 09:12 Atenolol (Tenormin) 50 mg DAILY ORAL 09/10/17 09:00 10/10/17 08:59 09/11/17 09:12 Dextrose (Dextrose 50%) STAT PRN IV Hypoglycemia 09/10/17 06:15 10/10/17 06:14 Diphenhydramine HCl (Benadryl) 25 mg Q6H PRN ORAL Itching/Pruritis 09/10/17 06:15 10/10/17 06:14 Duloxetine HCl (Cymbalta) 30 mg DAILY ORAL 09/10/17 09:00 10/10/17 08:59 09/11/17 09:12 Heparin Sodium (Porcine) (Heparin 5000 units/ml) 5,000 units EVERY 12 HOURS SUBQ 09/10/17 09:00 10/10/17 08:59 Hydralazine HCl (Apresoline) 20 mg BID ORAL 09/10/17 09:00 10/10/17 08:59 09/11/17 09:12 Insulin Aspart (NovoLOG) BEFORE MEALS AND HS SUBQ 09/10/17 06:30 10/10/17 06:29 09/10/17 21:25 Levothyroxine Sodium (Synthroid) 75 mcg DAILY@0630 ORAL 09/10/17 06:30 10/10/17 06:29 09/11/17 06:31 Nitroglycerin (Ntg) 0.4 mg Q5M X 3 DOSES PRN SL Prn Chest Pain 09/10/17 06:15 10/10/17 06:14 Ondansetron HCl (Zofran) 4 mg Q6H PRN IVP Nausea & Vomiting 09/10/17 06:15 10/10/17 06:14 Polyethylene Glycol (Miralax) 17 gm HSPRN PRN ORAL Constipation 2/9/18 06:15 10/10/17 06:14 Pregabalin (Lyrica) 50 mg Q12HR ORAL 09/10/17 09:00 10/10/17 08:59 09/11/17 09:11 Sodium Chloride 1,000 ml @ 50 mls/hr Q20H IV 09/10/17 06:03 10/10/17 06:02 09/11/17 02:40 Temazepam (Restoril) 15 mg HSPRN PRN ORAL Insomnia 09/10/17 06:15 09/17/17 06:14 09/10/17 22:34 ADAM SILVESTRE Sep 11, 2017 11:40
[2017-09-11 11:56] VITALS: BP 148/66
--- NOTE | 2017-09-11 12:55 | Diagnostic Imaging Report ---
Indication: Abdominal pain Technique: Multiplanar Grayscale and color Doppler imaging of the abdomen. Multiplanar grayscale and color Doppler imaging of the Kidneys and bladder. Comparison: CT abdomen 219 Findings: Limited exam due to body habitus. Imaged portions of the pancreatic head unremarkable in appearance. Body and tail are not seen. Liver is enlarged with the right lobe measuring 17 cm in length. Hepatic echogenicity is homogeneous. No focal hepatic mass lesion is appreciated sonographically. Gallbladder is normal in appearance. No pericholecystic fluid or gallstones seen. Sonographic Soliz sign reported as negative. Common bile duct measures 2.9 cm. Multiple well-circumscribed structures in the kidneys are noted. Many of them demonstrate characteristics consistent with simple renal cysts. Conglomerate lesion in the mid/upper pole the right kidney measuring 4.9 x 4.4 cm is noted and not definitively a simple renal cyst.. There is no hydronephrosis bilaterally. Prostate is enlarged. Bladder volume of approximately 207 mL. Aorta not well seen. Spleen normal in size. No ascites IMPRESSION: Limited exam. Multiple bilateral simple appearing renal cysts. Conglomerate lesion in the upper pole the right kidney measuring 4.9 x 4.4 cm not definitively cystic in nature. Correlation with contrast-enhanced CT or MRI recommended to exclude the possibility of malignancy. Mild hepatomegaly. No gallstones or evidence to suggest acute cholecystitis. Mildly enlarged prostate.
[2017-09-11 15:44] VITALS: BP 162/68
--- NOTE | 2017-09-11 17:20 | General Progress Note ---
Assessment/Plan Assessment/Plan Assessment (1) Colitis, acute (2) Protracted diarrhea (3) Dehydration Plan recommend colonoscopy, patient refuses at this time and request his POC be discussed with his primary care adv to renal diet after imaging studies >> renal/abdominal U/S electrolyte correction send for stool studies, cdiff anemia work up OB stool r/o GI bleed monitor H&H, prn transfusions ppi fu labs Subjective Allergies: Coded Allergies: MORPHINE (Verified Allergy, Unknown, 09/10/17) Subjective Feels OK d/w family at bedside eating OK still with diarrhea Objective Last 24 Hour Vital Signs Date Time Temp Pulse Resp B/P (MAP) Pulse Ox O2 Delivery O2 Flow Rate FiO2 09/11/17 15:44 98.0 63 20 162/68 95 09/11/17 11:56 97.1 98 18 148/66 95 Room Air 09/11/17 09:12 161/68 09/11/17 09:12 63 161/68 09/11/17 09:12 63 161/68 09/11/17 08:20 98.1 63 19 161/68 Room Air 09/10/17 17:44 136/70 Intake and Output 09/10/17 09/11/17 19:00 07:00 Intake Total 240 ml Output Total 250 ml 450 ml Balance -250 ml -210 ml Intake Oral 240 ml Output Urine Total 250 ml 450 ml # Voids 1 # Bowel Movements 2 2 Laboratory Tests 09/11/17 07:35: Prothrombin Time 10.9, Prothromb Time International Ratio 1.0, Activated Partial Thromboplast Time 37H 09/11/17 07:40: White Blood Count 7.7, Red Blood Count 3.74L, Hemoglobin 12.1L, Hematocrit 35.4L , Mean Corpuscular Volume 95, Mean Corpuscular Hemoglobin 32.3H, Mean Corpuscular Hemoglobin Concent 34.2, Red Cell Distribution Width 13.2, Platelet Count 152, Mean Platelet Volume 9.1, Neutrophils (%) (Auto) 64.2, Lymphocytes (% ) (Auto) 20.1, Monocytes (%) (Auto) 11.7H, Eosinophils (%) (Auto) 3.4H, Basophils (%) (Auto) 0.7, Erythrocyte Sedimentation Rate 41H, Reticulocyte Count 1.3, Sodium Level 135L, Potassium Level 4.1, Chloride Level 104, Carbon Dioxide Level 26, Anion Gap 6, Blood Urea Nitrogen 26H, Creatinine 1.8H, Estimat Glomerular Filtration Rate , Glucose Level 90, Hemoglobin A1c 7.0H, Calcium Level 9.1, Phosphorus Level 2.9, Magnesium Level 2.1, Iron Level 22L, Total Iron Binding Capacity 227L, Percent Iron Saturation 10L, Unsaturated Iron Binding 205, Ferritin 126, Total Bilirubin 0.5, Aspartate Amino Transf (AST/SGOT ) 13L, Alanine Aminotransferase (ALT/SGPT) 20, Alkaline Phosphatase 56, Total Protein 6.0L, Albumin 2.9L, Globulin 3.1, Albumin/Globulin Ratio 0.9L, Amylase Level 71, Lipase 86, Vitamin B12 Level 519, Folate 14.5, Thyroid Stimulating Hormone (TSH) 1.990, Free Thyroxine 0.99 09/11/17 09:30: Urine Color Pale yellow, Urine Appearance Slightly cloudy, Urine pH 6, Urine Specific [place] 1.015, Urine Protein 3+H, Urine Glucose (UA) Negative, Urine Ketones Negative, Urine Occult Blood 4+H, Urine Nitrite Negative, Urine Bilirubin Negative, Urine Urobilinogen Normal, Urine Leukocyte Esterase 3+H, Urine RBC TntcH, Urine WBC TntcH, Urine Squamous Epithelial Cells Few, Urine Bacteria Few, Urine Eosinophils None seen, Urine Random Sodium 102, Urine Potassium Timed 23 Height (Feet): 5 Height (Inches): 6.00 Weight (Pounds): 171 Objective Elderly WM NCAT supple CTA RRR Soft ND no edema KATH SORIANO Sep 11, 2017 17:20
--- NOTE | 2017-09-11 17:37 | Internal Med Progress Note ---
Subjective Date of Service: Sep 11, 2017 Physician Name Su Rodriguez Attending Physician Gideon Martinez MD Current Medications Medications (Trade) Dose Ordered Sig/Joel Route PRN Reason Start Time Stop Time Status Last Admin Dose Admin Acetaminophen (Tylenol) 650 mg Q4H PRN ORAL fever 09/10/17 06:15 10/10/17 06:14 Acetaminophen (Tylenol) 650 mg Q4H PRN ORAL For Pain 09/10/17 13:00 10/10/17 12:59 Al Hydroxide/Mg Hydroxide (Mylanta II) 30 ml Q6H PRN ORAL dyspepsia 09/10/17 06:15 10/10/17 06:14 Allopurinol (Zyloprim) 100 mg BID ORAL 09/10/17 09:00 10/10/17 08:59 09/11/17 09:11 Amlodipine Besylate (Norvasc) 5 mg DAILY ORAL 09/10/17 09:00 10/10/17 08:59 09/11/17 09:12 Atenolol (Tenormin) 50 mg DAILY ORAL 09/10/17 09:00 10/10/17 08:59 09/11/17 09:12 Dextrose (Dextrose 50%) STAT PRN IV Hypoglycemia 09/10/17 06:15 10/10/17 06:14 Diphenhydramine HCl (Benadryl) 25 mg Q6H PRN ORAL Itching/Pruritis 09/10/17 06:15 10/10/17 06:14 Duloxetine HCl (Cymbalta) 30 mg DAILY ORAL 09/10/17 09:00 10/10/17 08:59 09/11/17 09:12 Hydralazine HCl (Apresoline) 20 mg BID ORAL 09/10/17 09:00 10/10/17 08:59 09/11/17 09:12 Insulin Aspart (NovoLOG) BEFORE MEALS AND HS SUBQ 09/10/17 06:30 10/10/17 06:29 09/11/17 17:11 Levofloxacin 50 ml @ 50 mls/hr DAILY@1400 IVPB 09/12/17 14:00 09/19/17 13:59 Levothyroxine Sodium (Synthroid) 75 mcg DAILY@0630 ORAL 09/10/17 06:30 10/10/17 06:29 09/11/17 06:31 Nitroglycerin (Ntg) 0.4 mg Q5M X 3 DOSES PRN SL Prn Chest Pain 09/10/17 06:15 10/10/17 06:14 Ondansetron HCl (Zofran) 4 mg Q6H PRN IVP Nausea & Vomiting 09/10/17 06:15 10/10/17 06:14 Polyethylene Glycol (Miralax) 17 gm HSPRN PRN ORAL Constipation 09/10/17 06:15 10/10/17 06:14 Pregabalin (Lyrica) 50 mg Q12HR ORAL 09/10/17 09:00 10/10/17 08:59 09/11/17 09:11 Sodium Chloride 1,000 ml @ 100 mls/hr Q10H IV 09/11/17 12:00 10/11/17 11:59 09/11/17 12:05 Tamsulosin HCl (Flomax) 0.4 mg BEDTIME ORAL 09/11/17 21:00 10/11/17 20:59 Temazepam (Restoril) 15 mg HSPRN PRN ORAL Insomnia 09/10/17 06:15 09/17/17 06:14 09/10/17 22:34 Allergies: Coded Allergies: MORPHINE (Verified Allergy, Unknown, 09/10/17) ROS Limited/Unobtainable: No Constitutional: Reports: no symptoms HEENT: Reports: no symptoms Cardiovascular: Reports: no symptoms Respiratory: Reports: no symptoms Gastrointestinal/Abdominal: Reports: no symptoms Genitourinary: Reports: no symptoms Neurologic/Psychiatric: Reports: no symptoms Subjective 81 YO M admitted with diarrhea and dehydration. Now renal failure. Cover for Int Tu-Dr Martinez Objective Last Vital Signs Date Time Temp Pulse Resp B/P (MAP) Pulse Ox O2 Delivery O2 Flow Rate FiO2 09/11/17 15:44 98.0 63 20 162/68 95 09/11/17 11:56 Room Air General Appearance: WD/WN, no apparent distress, alert EENT: PERRL/EOMI, normal ENT inspection Neck: non-tender, normal alignment, supple, normal inspection Cardiovascular: normal peripheral pulses, normal rate, regular rhythm, no gallop/murmur, no JVD Respiratory/Chest: chest wall non-tender, lungs clear, normal breath sounds, no respiratory distress, no accessory muscle use Abdomen: normal bowel sounds, non tender, soft, no organomegaly, no mass Extremities: normal range of motion Neurologic: maxillofacial pathology II-XII grossly normal, no motor/sensory deficits Skin: normal pigmentation, warm/dry Laboratory Tests Test 09/11/17 07:35 09/11/17 07:40 09/11/17 09:30 Prothrombin Time 10.9 SEC (9.30-11.50) Prothromb Time International Ratio 1.0 (0.9-1.1) Activated Partial Thromboplast Time 37 SEC (23-33) H White Blood Count 7.7 K/UL (4.8-10.8) Red Blood Count 3.74 M/UL (4.70-6.10) L Hemoglobin 12.1 G/DL (14.2-18.0) L Hematocrit 35.4 % (42.0-52.0) L Mean Corpuscular Volume 95 FL (80-99) Mean Corpuscular Hemoglobin 32.3 PG (27.0-31.0) H Mean Corpuscular Hemoglobin Concent 34.2 G/DL (32.0-36.0) Red Cell Distribution Width 13.2 % (11.6-14.8) Platelet Count 152 K/UL (150-450) Mean Platelet Volume 9.1 FL (6.5-10.1) Neutrophils (%) (Auto) 64.2 % (45.0-75.0) Lymphocytes (%) (Auto) 20.1 % (20.0-45.0) Monocytes (%) (Auto) 11.7 % (1.0-10.0) H Eosinophils (%) (Auto) 3.4 % (0.0-3.0) H Basophils (%) (Auto) 0.7 % (0.0-2.0) Erythrocyte Sedimentation Rate 41 MM/HR (0-30) H Reticulocyte Count 1.3 % (0.0-2.0) Sodium Level 135 MMOL/L (136-145) L Potassium Level 4.1 MMOL/L (3.5-5.1) Chloride Level 104 MMOL/L (98-107) Carbon Dioxide Level 26 MMOL/L (21-32) Anion Gap 6 mmol/L (5-15) Blood Urea Nitrogen 26 mg/dL (7-18) H Creatinine 1.8 MG/DL (0.55-1.30) H Estimat Glomerular Filtration Rate mL/min (>60) Glucose Level 90 MG/DL (74-106) Hemoglobin A1c 7.0 % (4.3-6.0) H Calcium Level 9.1 MG/DL (8.5-10.1) Phosphorus Level 2.9 MG/DL (2.5-4.9) Magnesium Level 2.1 MG/DL (1.8-2.4) Iron Level 22 ug/dL (50-175) L Total Iron Binding Capacity 227 ug/dL (250-450) L Percent Iron Saturation 10 % (15-50) L Unsaturated Iron Binding 205 ug/dL (112-346) Ferritin 126 NG/ML (8-388) Total Bilirubin 0.5 MG/DL (0.2-1.0) Aspartate Amino Transf (AST/SGOT) 13 U/L (15-37) L Alanine Aminotransferase (ALT/SGPT) 20 U/L (12-78) Alkaline Phosphatase 56 U/L (46-116) Total Protein 6.0 G/DL (6.4-8.2) L Albumin 2.9 G/DL (3.4-5.0) L Globulin 3.1 g/dL Albumin/Globulin Ratio 0.9 (1.0-2.7) L Amylase Level 71 U/L (25-115) Lipase 86 U/L (73-393) Vitamin B12 Level 519 PG/ML (193-986) Folate 14.5 NG/ML (8.6-58.9) Thyroid Stimulating Hormone (TSH) 1.990 uiU/mL (0.358-3.740) Free Thyroxine 0.99 NG/DL (0.76-1.46) Urine Color Pale yellow Urine Appearance Slightly cloudy Urine pH 6 (4.5-8.0) Urine Specific [place] 1.015 (1.005-1.035) Urine Protein 3+ (NEGATIVE) H Urine Glucose (UA) Negative (NEGATIVE) Urine Ketones Negative (NEGATIVE) Urine Occult Blood 4+ (NEGATIVE) H Urine Nitrite Negative (NEGATIVE) Urine Bilirubin Negative (NEGATIVE) Urine Urobilinogen Normal MG/DL (0.0-1.0) Urine Leukocyte Esterase 3+ (NEGATIVE) H Urine RBC Tntc /HPF (0 - 0) H Urine WBC Tntc /HPF (0 - 0) H Urine Squamous Epithelial Cells Few /LPF (NONE/OCC) Urine Bacteria Few /HPF (NONE) Urine Eosinophils None seen Urine Random Sodium 102 MEQ/L (20-110) Urine Potassium Timed 23 mmol/L (12-62) Microbiology Date/Time Source Procedure Growth Status 09/10/17 09:30 Stool Clostridium difficile Toxin Assay - Final Complete 09/10/17 06:00 Urine,Clean Catch Urine Culture - Preliminary NO GROWTH Resulted Intake and Output 09/10/17 09/11/17 19:00 07:00 Intake Total 240 ml Output Total 250 ml 450 ml Balance -250 ml -210 ml Intake Oral 240 ml Output Urine Total 250 ml 450 ml # Voids 1 # Bowel Movements 2 2 Assessment/Plan Problem List: (1) Renal failure Assessment & Plan: Due to dehydration (2) Near syncope Assessment & Plan: Due to hypotension due to dehydration (3) Diverticulosis (4) HTN (hypertension) Assessment & Plan: Cont norvasc, atenolol and hydralazine (5) Diabetes mellitus, type II (6) Hypothyroidism Assessment & Plan: Continue synthroid (7) Hypercholesteremia (8) Depression (9) Protracted diarrhea (10) BPH (benign prostatic hyperplasia) Assessment & Plan: Await urology consult. (11) Dehydration Assessment & Plan: Continue IV fluids. (12) Abdominal aortic aneurysm (AAA) 3.0 cm to 5.5 cm in diameter in male Assessment & Plan: Await vascular surgery consult. Status: not improved SU RODRIGUEZ Sep 11, 2017 17:37
[2017-09-11 20:00] VITALS: BP 109/69
[2017-09-11] MEDS: Tamsulosin 0.4mg cap ORAL SCH (20:19)
[2017-09-12] VITALS (9 sets, daily range): BP systolic 127–182; BP diastolic 69–91
[2017-09-12] MEDS: NovoLOG Insulin Flexpen SUBQ SCH ×4 (06:26→20:55)
[2017-09-12 08:39] LABS: BASOPHILS % (AUTO) 1.4 % (0.0-2.0); EOSINOPHILS % (AUTO) 4.2 % (0.0-3.0); HEMATOCRIT 35.2 % (42.0-52.0); HEMOGLOBIN 12.2 G/DL (14.2-18.0); LYMPHOCYTES % (AUTO) 23.1 % (20.0-45.0); MEAN CORPUSCULAR VOLUME 94 FL (80-99); MONOCYTES % (AUTO) 10.1 % (1.0-10.0); NEUTROPHILS % (AUTO) 61.2 % (45.0-75.0); PLATELET COUNT 152 K/UL (150-450); RED BLOOD COUNT 3.76 M/UL (4.70-6.10); RED CELL DISTRIBUTION WIDTH 13.2 % (11.6-14.8); WHITE BLOOD COUNT 6.5 K/UL (4.8-10.8)
[2017-09-12] MEDS: Allopurinol 100mg Tab ORAL SCH ×2 (09:05→16:57)
[2017-09-12] MEDS: DULoxetine 30mg cap ORAL SCH (09:06)
[2017-09-12] MEDS: Lyrica 50mg cap ORAL SCH ×2 (09:06→20:44)
[2017-09-12 09:14] LABS: ALANINE AMINOTRANSFERASE 19 U/L (12-78); ALBUMIN 2.7 G/DL (3.4-5.0); ALBUMIN/GLOBULIN RATIO 0.8 (1.0-2.7); ALKALINE PHOSPHATASE 55 U/L (46-116); ANION GAP 4 mmol/L (5-15); ASPARTATE AMINO TRANSFERASE 14 U/L (15-37); BILIRUBIN,TOTAL 0.3 MG/DL (0.2-1.0); BLOOD UREA NITROGEN 23 mg/dL (7-18); CALCIUM 8.9 MG/DL (8.5-10.1); CARBON DIOXIDE 26 MMOL/L (21-32); CHLORIDE 104 MMOL/L (98-107); CREATININE 1.4 MG/DL (0.55-1.30); PHOSPHORUS 2.6 MG/DL (2.5-4.9); SODIUM 134 MMOL/L (136-145)
[2017-09-12] MEDS: HydrALAZINE 10mg Tab ORAL SCH ×2 (09:14→16:57)
--- NOTE | 2017-09-12 09:32 | Pulmonology Progress Note ---
Assessment/Plan Problems: (1) Colitis, acute (2) Severe anemia (3) BPH (benign prostatic hyperplasia) (4) PAM (acute kidney injury) (5) Protracted diarrhea (6) Lower GI bleed (7) Constipated (8) UTI (urinary tract infection) (9) Abdominal aortic aneurysm (AAA) 3.0 cm to 5.5 cm in diameter in male (10) Dehydration Assessment/Plan iv fluids iv abx Urology called GI evaluation dvt prophylaxis check stool continue abx Subjective ROS Limited/Unobtainable: No HEENT: Repors: no symptoms Allergies: Coded Allergies: MORPHINE (Verified Allergy, Unknown, 09/10/17) Objective Last 24 Hour Vital Signs Date Time Temp Pulse Resp B/P (MAP) Pulse Ox O2 Delivery O2 Flow Rate FiO2 09/12/17 09:15 58 163/66 09/12/17 09:14 168/75 09/12/17 08:00 98.0 59 20 168/75 98 09/12/17 04:00 97.9 55 20 159/73 97 Room Air 09/12/17 00:00 98.0 79 18 129/71 95 Room Air 09/11/17 20:00 98.4 82 18 109/69 95 Room Air 09/11/17 18:08 162/68 09/11/17 15:44 98.0 63 20 162/68 95 09/11/17 15:44 Room Air 09/11/17 11:56 97.1 98 18 148/66 95 Room Air Intake and Output 09/11/17 09/12/17 19:00 07:00 Intake Total 985 ml 1500 ml Output Total 3100 ml Balance 985 ml -1600 ml Intake Oral 285 ml 500 ml IV Total 700 ml 1000 ml Output Urine Total 3100 ml Objective General Appearance: WN/WD HEENT: normocephalic, atraumatic Respiratory/Chest: chest wall non-tender, normal breath sounds Cardiovascular: normal peripheral pulses, normal rate Abdomen: soft, non tender, no organomegaly Genitourinary: normal external genitalia Extremities: no clubbing Skin: no rash, no lesions 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, Lymphatic: no neck adenopathy Microbiology Date/Time Source Procedure Growth Status 09/10/17 09:30 Stool Clostridium difficile Toxin Assay - Final Complete 09/10/17 06:00 Urine,Clean Catch Urine Culture - Preliminary Mixed Gram Positive Organism Resulted Laboratory Tests 09/12/17 07:18: White Blood Count 6.5, Red Blood Count 3.76L, Hemoglobin 12.2L, Hematocrit 35.2L , Mean Corpuscular Volume 94, Mean Corpuscular Hemoglobin 32.6H, Mean Corpuscular Hemoglobin Concent 34.8, Red Cell Distribution Width 13.2, Platelet Count 152, Mean Platelet Volume 9.2, Neutrophils (%) (Auto) 61.2, Lymphocytes (% ) (Auto) 23.1, Monocytes (%) (Auto) 10.1H, Eosinophils (%) (Auto) 4.2H, Basophils (%) (Auto) 1.4, Sodium Level 134L, Potassium Level 4.0, Chloride Level 104, Carbon Dioxide Level 26, Anion Gap 4L, Blood Urea Nitrogen 23H, Creatinine 1.4H, Estimat Glomerular Filtration Rate , Glucose Level 108H, Calcium Level 8.9, Phosphorus Level 2.6, Magnesium Level 1.8, Total Bilirubin 0.3, Aspartate Amino Transf (AST/SGOT) 14L, Alanine Aminotransferase (ALT/SGPT) 19, Alkaline Phosphatase 55, Total Protein 6.0L, Albumin 2.7L, Globulin 3.3, Albumin/Globulin Ratio 0.8L Current Medications Medications (Trade) Dose Ordered Sig/Joel Route PRN Reason Start Time Stop Time Status Last Admin Dose Admin Acetaminophen (Tylenol) 650 mg Q4H PRN ORAL fever 09/10/17 06:15 10/10/17 06:14 Acetaminophen (Tylenol) 650 mg Q4H PRN ORAL For Pain 09/10/17 13:00 10/10/17 12:59 Al Hydroxide/Mg Hydroxide (Mylanta II) 30 ml Q6H PRN ORAL dyspepsia 09/10/17 06:15 10/10/17 06:14 Allopurinol (Zyloprim) 100 mg BID ORAL 09/10/17 09:00 10/10/17 08:59 09/12/17 09:05 Amlodipine Besylate (Norvasc) 5 mg DAILY ORAL 09/10/17 09:00 10/10/17 08:59 09/12/17 09:15 Atenolol (Tenormin) 50 mg DAILY ORAL 09/10/17 09:00 10/10/17 08:59 09/11/17 09:12 Dextrose (Dextrose 50%) STAT PRN IV Hypoglycemia 09/10/17 06:15 10/10/17 06:14 Diphenhydramine HCl (Benadryl) 25 mg Q6H PRN ORAL Itching/Pruritis 09/10/17 06:15 10/10/17 06:14 Duloxetine HCl (Cymbalta) 30 mg DAILY ORAL 09/10/17 09:00 10/10/17 08:59 09/12/17 09:06 Hydralazine HCl (Apresoline) 20 mg BID ORAL 09/10/17 09:00 10/10/17 08:59 09/12/17 09:14 Insulin Aspart (NovoLOG) BEFORE MEALS AND HS SUBQ 09/10/17 06:30 10/10/17 06:29 09/12/17 06:26 Levofloxacin 50 ml @ 50 mls/hr DAILY@1400 IVPB 09/12/17 14:00 09/19/17 13:59 Levothyroxine Sodium (Synthroid) 75 mcg DAILY@0630 ORAL 09/10/17 06:30 10/10/17 06:29 09/12/17 06:25 Nitroglycerin (Ntg) 0.4 mg Q5M X 3 DOSES PRN SL Prn Chest Pain 09/10/17 06:15 10/10/17 06:14 Ondansetron HCl (Zofran) 4 mg Q6H PRN IVP Nausea & Vomiting 09/10/17 06:15 10/10/17 06:14 Polyethylene Glycol (Miralax) 17 gm HSPRN PRN ORAL Constipation 09/10/17 06:15 10/10/17 06:14 Pregabalin (Lyrica) 50 mg Q12HR ORAL 09/10/17 09:00 10/10/17 08:59 09/12/17 09:06 Sodium Chloride 1,000 ml @ 100 mls/hr Q10H IV 09/11/17 12:00 10/11/17 11:59 09/12/17 09:04 Tamsulosin HCl (Flomax) 0.4 mg BEDTIME ORAL 09/11/17 21:00 10/11/17 20:59 09/11/17 20:19 Temazepam (Restoril) 15 mg HSPRN PRN ORAL Insomnia 09/10/17 06:15 2/16/18 06:14 09/11/17 20:19 ADAM SILVESTRE Sep 12, 2017 09:32
[2017-09-12] MEDS: Sennosides 8.6mg ORAL SCH (10:23)
[2017-09-12] MEDS: Docusate 100mg cap ORAL SCH ×2 (12:14→16:57)
[2017-09-12] MEDS: Lactulose 20gm/30ml UDC ORAL SCH ×2 (12:15→16:57)
--- NOTE | 2017-09-12 13:17 | Consultation ---
Consult Note Consult Note ID DIC # [id number] ELANA WHITE M.D. Sep 12, 2017 13:17
[2017-09-12] MEDS ORDERED: LR 1000ml ONE (16:20)
[2017-09-12] MEDS ORDERED: Tubing IV Secondary IV ONE (16:20)
--- NOTE | 2017-09-12 17:21 | Internal Med Progress Note ---
Subjective Physician Name Su Rodriguez Attending Physician Gideon Martinez MD Current Medications Medications (Trade) Dose Ordered Sig/Joel Route PRN Reason Start Time Stop Time Status Last Admin Dose Admin Acetaminophen (Tylenol) 650 mg Q4H PRN ORAL fever 09/10/17 06:15 10/10/17 06:14 Acetaminophen (Tylenol) 650 mg Q4H PRN ORAL For Pain 09/10/17 13:00 10/10/17 12:59 Al Hydroxide/Mg Hydroxide (Mylanta II) 30 ml Q6H PRN ORAL dyspepsia 09/10/17 06:15 10/10/17 06:14 Allopurinol (Zyloprim) 100 mg BID ORAL 09/10/17 09:00 10/10/17 08:59 09/12/17 16:57 Amlodipine Besylate (Norvasc) 5 mg DAILY ORAL 09/10/17 09:00 10/10/17 08:59 09/12/17 09:15 Atenolol (Tenormin) 50 mg DAILY ORAL 09/10/17 09:00 10/10/17 08:59 09/11/17 09:12 Dextrose (Dextrose 50%) STAT PRN IV Hypoglycemia 09/10/17 06:15 10/10/17 06:14 Diphenhydramine HCl (Benadryl) 25 mg Q6H PRN ORAL Itching/Pruritis 09/10/17 06:15 10/10/17 06:14 Docusate Sodium (Colace) 100 mg THREE TIMES A DAY ORAL 09/12/17 13:00 10/12/17 12:59 09/12/17 16:57 Duloxetine HCl (Cymbalta) 30 mg DAILY ORAL 09/10/17 09:00 10/10/17 08:59 09/12/17 09:06 Hydralazine HCl (Apresoline) 20 mg BID ORAL 09/10/17 09:00 10/10/17 08:59 09/12/17 16:57 Insulin Aspart (NovoLOG) BEFORE MEALS AND HS SUBQ 09/10/17 06:30 10/10/17 06:29 09/12/17 16:59 Lactulose (Cephulac) 30 gm THREE TIMES A DAY ORAL 09/12/17 13:00 10/12/17 12:59 09/12/17 16:57 Levofloxacin (Levaquin) 250 mg DAILY ORAL 09/12/17 12:00 09/19/17 11:59 09/12/17 12:14 Levothyroxine Sodium (Synthroid) 75 mcg DAILY@0630 ORAL 09/10/17 06:30 10/10/17 06:29 09/12/17 06:25 Nitroglycerin (Ntg) 0.4 mg Q5M X 3 DOSES PRN SL Prn Chest Pain 09/10/17 06:15 10/10/17 06:14 Ondansetron HCl (Zofran) 4 mg Q6H PRN IVP Nausea & Vomiting 09/10/17 06:15 10/10/17 06:14 Polyethylene Glycol (Miralax) 17 gm HSPRN PRN ORAL Constipation 09/10/17 06:15 10/10/17 06:14 Pregabalin (Lyrica) 50 mg Q12HR ORAL 09/10/17 09:00 10/10/17 08:59 09/12/17 09:06 Sennosides (Senokot) 1 tab DAILY ORAL 09/12/17 10:00 10/12/17 09:59 09/12/17 10:23 Sodium Chloride 1,000 ml @ 100 mls/hr Q10H IV 09/11/17 12:00 10/11/17 11:59 09/12/17 09:04 Tamsulosin HCl (Flomax) 0.4 mg BEDTIME ORAL 09/11/17 21:00 10/11/17 20:59 09/11/17 20:19 Temazepam (Restoril) 15 mg HSPRN PRN ORAL Insomnia 09/10/17 06:15 09/17/17 06:14 09/11/17 20:19 Allergies: Coded Allergies: MORPHINE (Verified Allergy, Unknown, 09/10/17) Subjective 81 YO M admitted with diarrhea and dehydration. Now renal failure. Cover for Int Tu-Dr Martinez Objective Last Vital Signs Date Time Temp Pulse Resp B/P (MAP) Pulse Ox O2 Delivery O2 Flow Rate FiO2 09/12/17 16:57 146/70 09/12/17 16:00 98.4 64 18 99 09/12/17 04:00 Room Air Laboratory Tests Test 09/12/17 07:18 White Blood Count 6.5 K/UL (4.8-10.8) Red Blood Count 3.76 M/UL (4.70-6.10) L Hemoglobin 12.2 G/DL (14.2-18.0) L Hematocrit 35.2 % (42.0-52.0) L Mean Corpuscular Volume 94 FL (80-99) Mean Corpuscular Hemoglobin 32.6 PG (27.0-31.0) H Mean Corpuscular Hemoglobin Concent 34.8 G/DL (32.0-36.0) Red Cell Distribution Width 13.2 % (11.6-14.8) Platelet Count 152 K/UL (150-450) Mean Platelet Volume 9.2 FL (6.5-10.1) Neutrophils (%) (Auto) 61.2 % (45.0-75.0) Lymphocytes (%) (Auto) 23.1 % (20.0-45.0) Monocytes (%) (Auto) 10.1 % (1.0-10.0) H Eosinophils (%) (Auto) 4.2 % (0.0-3.0) H Basophils (%) (Auto) 1.4 % (0.0-2.0) Sodium Level 134 MMOL/L (136-145) L Potassium Level 4.0 MMOL/L (3.5-5.1) Chloride Level 104 MMOL/L (98-107) Carbon Dioxide Level 26 MMOL/L (21-32) Anion Gap 4 mmol/L (5-15) L Blood Urea Nitrogen 23 mg/dL (7-18) H Creatinine 1.4 MG/DL (0.55-1.30) H Estimat Glomerular Filtration Rate mL/min (>60) Glucose Level 108 MG/DL (74-106) H Calcium Level 8.9 MG/DL (8.5-10.1) Phosphorus Level 2.6 MG/DL (2.5-4.9) Magnesium Level 1.8 MG/DL (1.8-2.4) Total Bilirubin 0.3 MG/DL (0.2-1.0) Aspartate Amino Transf (AST/SGOT) 14 U/L (15-37) L Alanine Aminotransferase (ALT/SGPT) 19 U/L (12-78) Alkaline Phosphatase 55 U/L (46-116) Total Protein 6.0 G/DL (6.4-8.2) L Albumin 2.7 G/DL (3.4-5.0) L Globulin 3.3 g/dL Albumin/Globulin Ratio 0.8 (1.0-2.7) L Microbiology Date/Time Source Procedure Growth Status 09/10/17 09:30 Stool Clostridium difficile Toxin Assay - Final Complete 09/11/17 09:30 Urine,Clean Catch Urine Culture - Preliminary NO GROWTH Resulted 09/10/17 06:00 Urine,Clean Catch Urine Culture - Preliminary Mixed Gram Positive Organism Resulted Intake and Output 09/11/17 09/12/17 19:00 07:00 Intake Total 985 ml 1500 ml Output Total 3100 ml Balance 985 ml -1600 ml Intake Oral 285 ml 500 ml IV Total 700 ml 1000 ml Output Urine Total 3100 ml Objective General Appearance: WD/WN, no apparent distress, alert EENT: PERRL/EOMI, normal ENT inspection Neck: non-tender, normal alignment, supple, normal inspection Cardiovascular: normal peripheral pulses, normal rate, regular rhythm, no gallop/murmur, no JVD Respiratory/Chest: chest wall non-tender, lungs clear, normal breath sounds, no respiratory distress, no accessory muscle use Abdomen: normal bowel sounds, non tender, soft, no organomegaly, no mass Extremities: normal range of motion 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 (11) Dehydration Assessment & Plan: Continue IV fluids. (12) Abdominal aortic aneurysm (AAA) 3.0 cm to 5.5 cm in diameter in male Assessment & Plan: Await vascular surgery consult. Status: not improved SU RODRIGUEZ Sep 12, 2017 17:21
--- NOTE | 2017-09-12 18:30 | Consultation ---
DATE OF CONSULTATION: 09/12/2017 INFECTIOUS DISEASE CONSULTATION CONSULTING PHYSICIAN: Calvin Robert M.D. REQUESTING PHYSICIAN: Carmen Nolan M.D. and Gideon Martinez M.D. REASON FOR CONSULTATION: Evaluation of the patient for possible urinary tract infection, antibiotic management. HISTORY OF PRESENT ILLNESS: The patient is an 81-year-old male with multiple medical problems, who presented to this medical center for weakness, diarrhea, and dehydration. The patient also has been complaining of few episodes of hematuria prior to admission. The patient was found to have urinary retention and Sheehan catheter was placed. The patient has been started on antibiotics and an Infectious Disease consultation has been requested for further evaluation of the patient. Currently, the patient's diarrhea has subsided, actually he is constipated; however, the patient still has a Sheehan catheter. PAST MEDICAL HISTORY: 1. Hypertension. 2. Diabetes. 3. Hypothyroidism. 4. Hypercholesterolemia. 5. Depression. 6. BPH, status post TURP about three months ago. MEDICATIONS: Levaquin. ALLERGIES: Morphine. SOCIAL HISTORY: The patient lives with at home. FAMILY HISTORY: Not contributing. REVIEW OF SYSTEMS: A 10-point review was done and except what is mentioned above has been negative. PHYSICAL EXAMINATION: VITAL SIGNS: Temperature 97 degrees, pulse 80, blood pressure 127/91, and respiratory rate 18. HEENT: No pale conjunctivae. No icterus. NECK: No lymphadenopathy. CHEST: Clear. HEART: S1 and S2. ABDOMEN: Soft and nontender. EXTREMITIES: No cyanosis at this time. GENITOURINARY: Sheehan catheter in place. NEUROLOGIC: Awake and alert. LABORATORY AND DIAGNOSTIC DATA: White blood cells 6.5, hemoglobin 12, and platelets 152. UA, too numerous to count white blood cells and too numerous to count red blood cells. BUN 23 and creatinine 1.4. ALT, AST, and alkaline phosphatase unremarkable. Initial blood culture growing mixed bacteria. Repeat culture is pending. Stool for C. difficile negative. Ultrasound of the abdomen, bilateral renal cysts, mild hepatomegaly, no gallstone. CT of the abdomen shows 5.1 cm saccular infrarenal abdominal aortic aneurysm, and . ASSESSMENT: The patient is an 81-year-old male with, 1. Status post diarrhea, that has resolved. 2. Hematuria, probable underlying urinary tract infection in view of urinary retention. 3. Urinary obstruction. 4. Afebrile. 5. Normal white blood cells. PLAN: 1. We will continue the patient on Levaquin day #08/15. 2. Monitor CBC. 3. Monitor BMP. 4. Monitor urine culture. 5. Monitor the patient's clinical course and laboratories and based on those, we will do further recommendation. Thank you, Dr. Nolan, for allowing me to participate in the care of this patient. I will follow the patient with you during this hospitalization. Calvin Robert M.D. DR: JOSEPH JOB#: [id number] CC:
--- NOTE | 2017-09-12 19:09 | General Progress Note ---
Assessment/Plan Assessment/Plan Assessment (1) Colitis, acute - resolved (2) Protracted diarrhea - resolved (3) Dehydration - improved Plan previously recommend colonoscopy, patient refuses at this time and request his POC be discussed with his primary care adv to renal diet after imaging studies >> renal/abdominal U/S electrolyte correction send for stool studies, cdiff anemia work up OB stool r/o GI bleed monitor H&H, prn transfusions ppi fu labs Subjective Allergies: Coded Allergies: MORPHINE (Verified Allergy, Unknown, 09/10/17) Subjective Feels OK d/w family at bedside eating OK diarrhea resolved Objective Last 24 Hour Vital Signs Date Time Temp Pulse Resp B/P (MAP) Pulse Ox O2 Delivery O2 Flow Rate FiO2 09/12/17 16:57 146/70 09/12/17 16:00 98.4 64 18 146/70 99 09/12/17 12:00 97.8 86 18 127/91 99 09/12/17 09:15 58 163/66 09/12/17 09:14 168/75 09/12/17 08:00 98.0 59 20 168/75 98 09/12/17 04:00 97.9 55 20 159/73 97 Room Air 09/12/17 00:00 98.0 79 18 129/71 95 Room Air 09/11/17 20:00 98.4 82 18 109/69 95 Room Air Intake and Output 09/11/17 09/12/17 19:00 07:00 Intake Total 985 ml 1500 ml Output Total 3100 ml Balance 985 ml -1600 ml Intake Oral 285 ml 500 ml IV Total 700 ml 1000 ml Output Urine Total 3100 ml Laboratory Tests 09/12/17 07:18: White Blood Count 6.5, Red Blood Count 3.76L, Hemoglobin 12.2L, Hematocrit 35.2L , Mean Corpuscular Volume 94, Mean Corpuscular Hemoglobin 32.6H, Mean Corpuscular Hemoglobin Concent 34.8, Red Cell Distribution Width 13.2, Platelet Count 152, Mean Platelet Volume 9.2, Neutrophils (%) (Auto) 61.2, Lymphocytes (% ) (Auto) 23.1, Monocytes (%) (Auto) 10.1H, Eosinophils (%) (Auto) 4.2H, Basophils (%) (Auto) 1.4, Sodium Level 134L, Potassium Level 4.0, Chloride Level 104, Carbon Dioxide Level 26, Anion Gap 4L, Blood Urea Nitrogen 23H, Creatinine 1.4H, Estimat Glomerular Filtration Rate , Glucose Level 108H, Calcium Level 8.9, Phosphorus Level 2.6, Magnesium Level 1.8, Total Bilirubin 0.3, Aspartate Amino Transf (AST/SGOT) 14L, Alanine Aminotransferase (ALT/SGPT) 19, Alkaline Phosphatase 55, Total Protein 6.0L, Albumin 2.7L, Globulin 3.3, Albumin/Globulin Ratio 0.8L Height (Feet): 5 Height (Inches): 6.00 Weight (Pounds): 171 Objective Elderly WM NCAT supple CTA RRR Soft ND no edema KATH SORIANO Sep 12, 2017 19:08
[2017-09-12] MEDS: Tamsulosin 0.4mg cap ORAL SCH (20:44)
[2017-09-12] MEDS ORDERED: HydrALAZINE 50mg tab ORAL PRN (20:45)
[2017-09-13 04:00] VITALS: BP 160/70
[2017-09-13] MEDS: NovoLOG Insulin Flexpen SUBQ SCH ×2 (06:42→12:54)
[2017-09-13 08:00] VITALS: BP 177/93
[2017-09-13] MEDS: Lactulose 20gm/30ml UDC ORAL SCH ×2 (09:00→13:00)
[2017-09-13] MEDS: Lyrica 50mg cap ORAL SCH (09:07)
[2017-09-13] MEDS: HydrALAZINE 10mg Tab ORAL SCH (09:08)
[2017-09-13] MEDS: Sennosides 8.6mg ORAL SCH (09:08)
[2017-09-13] MEDS: Docusate 100mg cap ORAL SCH ×2 (09:09→12:53)
[2017-09-13] MEDS: Allopurinol 100mg Tab ORAL SCH (09:09)
[2017-09-13] MEDS: DULoxetine 30mg cap ORAL SCH (09:14)
[2017-09-13 11:21] LABS: BASOPHILS % (AUTO) 1.3 % (0.0-2.0); EOSINOPHILS % (AUTO) 4.3 % (0.0-3.0); HEMATOCRIT 39.6 % (42.0-52.0); HEMOGLOBIN 13.3 G/DL (14.2-18.0); LYMPHOCYTES % (AUTO) 19.6 % (20.0-45.0); MEAN CORPUSCULAR VOLUME 94 FL (80-99); MONOCYTES % (AUTO) 9.9 % (1.0-10.0); NEUTROPHILS % (AUTO) 64.9 % (45.0-75.0); PLATELET COUNT 175 K/UL (150-450); RED BLOOD COUNT 4.24 M/UL (4.70-6.10); RED CELL DISTRIBUTION WIDTH 13.4 % (11.6-14.8); WHITE BLOOD COUNT 6.5 K/UL (4.8-10.8)
--- NOTE | 2017-09-13 11:27 | GI Progress Note ---
Assessment/Plan Problems: (1) Constipated ICD Codes: K59.00 - Constipation, unspecified SNOMED: 32011212 (2) Dehydration ICD Codes: E86.0 - Dehydration SNOMED: 33230050, [id number] (3) Protracted diarrhea ICD Codes: K52.9 - Noninfective gastroenteritis and colitis, unspecified SNOMED: 167907090 (4) Colitis, acute ICD Codes: K52.9 - Noninfective gastroenteritis and colitis, unspecified SNOMED: 42171512, [id number] Status: stable Status Narrative Discussed with Dr. Richards. Assessment/Plan abdominal/renal US, see full report >> renal cysts. stool culture >> PSEUDOMONAS AERUGINOSA cdiff negative iron deficiency >> venofer OB stool negative previously recommend colonoscopy, patient refuses at this time and request his POC be discussed with his primary care renal diet abx electrolyte correction monitor H&H, prn transfusions ppi fu labs The patient was seen and examined at bedside and all new and available data was reviewed in the patients chart. I agree with the above findings, impression and plan. (Patient seen earlier today. Signature stamp does not reflect patient encounter time.). - Elias Richards MD Subjective Subjective diarrhea resolved wants to go home Objective Last 24 Hour Vital Signs Date Time Temp Pulse Resp B/P (MAP) Pulse Ox O2 Delivery O2 Flow Rate FiO2 09/13/17 09:10 62 177/74 09/13/17 09:09 62 177/74 09/13/17 09:08 177/74 09/13/17 04:00 97.9 59 18 160/70 97 Room Air 09/12/17 22:50 68 152/71 09/12/17 20:50 182/69 09/12/17 20:22 63 182/69 09/12/17 20:20 63 174/86 09/12/17 20:00 97.7 83 18 174/74 98 Room Air 09/12/17 16:57 146/70 09/12/17 16:00 98.4 64 18 146/70 99 09/12/17 12:00 97.8 86 18 127/91 99 Intake and Output 09/12/17 09/13/17 19:00 07:00 Intake Total 1850 ml 1300 ml Output Total 1100 ml 1700 ml Balance 750 ml -400 ml Intake Oral 650 ml 500 ml IV Total 1200 ml 800 ml Output Urine Total 1100 ml 1700 ml # Bowel Movements 4 Laboratory Tests Test 09/13/17 10:30 White Blood Count 6.5 K/UL (4.8-10.8) Red Blood Count 4.24 M/UL (4.70-6.10) L Hemoglobin 13.3 G/DL (14.2-18.0) L Hematocrit 39.6 % (42.0-52.0) L Mean Corpuscular Volume 94 FL (80-99) Mean Corpuscular Hemoglobin 31.4 PG (27.0-31.0) H Mean Corpuscular Hemoglobin Concent 33.6 G/DL (32.0-36.0) Red Cell Distribution Width 13.4 % (11.6-14.8) Platelet Count 175 K/UL (150-450) Mean Platelet Volume 8.8 FL (6.5-10.1) Neutrophils (%) (Auto) 64.9 % (45.0-75.0) Lymphocytes (%) (Auto) 19.6 % (20.0-45.0) L Monocytes (%) (Auto) 9.9 % (1.0-10.0) Eosinophils (%) (Auto) 4.3 % (0.0-3.0) H Basophils (%) (Auto) 1.3 % (0.0-2.0) Erythrocyte Sedimentation Rate Pending Sodium Level Pending Potassium Level Pending Chloride Level Pending Carbon Dioxide Level Pending Blood Urea Nitrogen Pending Creatinine Pending Estimat Glomerular Filtration Rate Pending Glucose Level Pending Calcium Level Pending Phosphorus Level Pending Magnesium Level Pending Total Bilirubin Pending Aspartate Amino Transf (AST/SGOT) Pending Alanine Aminotransferase (ALT/SGPT) Pending Alkaline Phosphatase Pending Total Protein Pending Albumin Pending Globulin Pending Height (Feet): 5 Height (Inches): 6.00 Weight (Pounds): 171 General Appearance: WD/WN, no apparent distress, alert Cardiovascular: normal rate Respiratory/Chest: normal breath sounds, no respiratory distress Abdominal Exam: normal bowel sounds, non tender, soft Extremities: normal range of motion, non-tender Denise Muniz N.Mariah Sep 13, 2017 11:27 ISABELLE RICHARDS Sep 13, 2017 15:20
[2017-09-13 11:36] LABS: ALANINE AMINOTRANSFERASE 23 U/L (12-78); ALBUMIN 3.1 G/DL (3.4-5.0); ALKALINE PHOSPHATASE 67 U/L (46-116); ANION GAP 8 mmol/L (5-15); ASPARTATE AMINO TRANSFERASE 15 U/L (15-37); BILIRUBIN,TOTAL 0.3 MG/DL (0.2-1.0); BLOOD UREA NITROGEN 20 mg/dL (7-18); CALCIUM 9.6 MG/DL (8.5-10.1); CARBON DIOXIDE 27 MMOL/L (21-32); CHLORIDE 102 MMOL/L (98-107); CREATININE 1.5 MG/DL (0.55-1.30); PHOSPHORUS 2.8 MG/DL (2.5-4.9); POTASSIUM 4.1 MMOL/L (3.5-5.1); SODIUM 137 MMOL/L (136-145)
[2017-09-13 12:10] VITALS: BP 170/60
--- NOTE | 2017-09-13 13:01 | Pulmonology Progress Note ---
Assessment/Plan Problems: (1) PAM (acute kidney injury) (2) Protracted diarrhea (3) Diverticulosis (4) Diabetes mellitus, type II (5) Abdominal aortic aneurysm (AAA) 3.0 cm to 5.5 cm in diameter in male (6) HTN (hypertension) (7) Hypothyroidism Assessment/Plan iv fluids iv abx, ID note appreciated Urology called GI evaluation appreciated dvt prophylaxis check stool continue abx, change to PO upon discharge. Subjective ROS Limited/Unobtainable: No Constitutional: Reports: no symptoms HEENT: Repors: no symptoms Allergies: Coded Allergies: MORPHINE (Verified Allergy, Unknown, 09/10/17) Objective Last 24 Hour Vital Signs Date Time Temp Pulse Resp B/P (MAP) Pulse Ox O2 Delivery O2 Flow Rate FiO2 09/13/17 09:10 62 177/74 09/13/17 09:09 62 177/74 09/13/17 09:08 177/74 09/13/17 04:00 97.9 59 18 160/70 97 Room Air 09/12/17 22:50 68 152/71 09/12/17 20:50 182/69 09/12/17 20:22 63 182/69 09/12/17 20:20 63 174/86 09/12/17 20:00 97.7 83 18 174/74 98 Room Air 09/12/17 16:57 146/70 09/12/17 16:00 98.4 64 18 146/70 99 Intake and Output 09/12/17 09/13/17 19:00 07:00 Intake Total 1850 ml 1300 ml Output Total 1100 ml 1700 ml Balance 750 ml -400 ml Intake Oral 650 ml 500 ml IV Total 1200 ml 800 ml Output Urine Total 1100 ml 1700 ml # Bowel Movements 4 Objective General Appearance: WN/WD HEENT: normocephalic, atraumatic Respiratory/Chest: chest wall non-tender, normal breath sounds Cardiovascular: normal peripheral pulses, normal rate Abdomen: soft, non tender, no organomegaly Genitourinary: normal external genitalia Extremities: no clubbing Skin: no rash, no lesions 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, Lymphatic: no neck adenopathy Microbiology Date/Time Source Procedure Growth Status 09/11/17 09:30 Urine,Clean Catch Urine Culture - Preliminary NO GROWTH AFTER 24 HOURS Resulted Laboratory Tests 09/13/17 10:30: White Blood Count 6.5, Red Blood Count 4.24L, Hemoglobin 13.3L, Hematocrit 39.6L , Mean Corpuscular Volume 94, Mean Corpuscular Hemoglobin 31.4H, Mean Corpuscular Hemoglobin Concent 33.6, Red Cell Distribution Width 13.4, Platelet Count 175, Mean Platelet Volume 8.8, Neutrophils (%) (Auto) 64.9, Lymphocytes (% ) (Auto) 19.6L, Monocytes (%) (Auto) 9.9, Eosinophils (%) (Auto) 4.3H, Basophils (%) (Auto) 1.3, Erythrocyte Sedimentation Rate 53H, Sodium Level 137, Potassium Level 4.1, Chloride Level 102, Carbon Dioxide Level 27, Anion Gap 8, Blood Urea Nitrogen 20H, Creatinine 1.5H, Estimat Glomerular Filtration Rate , Glucose Level 143H, Calcium Level 9.6, Phosphorus Level 2.8, Magnesium Level 2.0 , Total Bilirubin 0.3, Aspartate Amino Transf (AST/SGOT) 15, Alanine Aminotransferase (ALT/SGPT) 23, Alkaline Phosphatase 67, Total Protein 6.2L, Albumin 3.1L, Globulin 3.1, Albumin/Globulin Ratio 1.0 Current Medications Medications (Trade) Dose Ordered Sig/Joel Route PRN Reason Start Time Stop Time Status Last Admin Dose Admin Acetaminophen (Tylenol) 650 mg Q4H PRN ORAL fever 09/10/17 06:15 10/10/17 06:14 Acetaminophen (Tylenol) 650 mg Q4H PRN ORAL For Pain 09/10/17 13:00 10/10/17 12:59 Al Hydroxide/Mg Hydroxide (Mylanta II) 30 ml Q6H PRN ORAL dyspepsia 09/10/17 06:15 10/10/17 06:14 Allopurinol (Zyloprim) 100 mg BID ORAL 09/10/17 09:00 10/10/17 08:59 09/13/17 09:09 Amlodipine Besylate (Norvasc) 5 mg DAILY ORAL 09/10/17 09:00 10/10/17 08:59 09/13/17 09:09 Atenolol (Tenormin) 50 mg DAILY ORAL 09/10/17 09:00 10/10/17 08:59 09/13/17 09:10 Dextrose (Dextrose 50%) STAT PRN IV Hypoglycemia 09/10/17 06:15 10/10/17 06:14 Diphenhydramine HCl (Benadryl) 25 mg Q6H PRN ORAL Itching/Pruritis 09/10/17 06:15 10/10/17 06:14 Docusate Sodium (Colace) 100 mg THREE TIMES A DAY ORAL 09/12/17 13:00 10/12/17 12:59 09/13/17 09:09 Duloxetine HCl (Cymbalta) 30 mg DAILY ORAL 09/10/17 09:00 10/10/17 08:59 09/13/17 09:14 Hydralazine HCl (Apresoline) 20 mg BID ORAL 09/10/17 09:00 10/10/17 08:59 09/13/17 09:08 Hydralazine HCl (Apresoline) 50 mg Q4H PRN ORAL For High Blood Pressure 09/12/17 20:45 10/12/17 20:44 09/12/17 20:50 Insulin Aspart (NovoLOG) BEFORE MEALS AND HS SUBQ 09/10/17 06:30 10/10/17 06:29 09/13/17 06:42 Iron Sucrose 100 mg/Sodium Chloride 60 ml @ 240 mls/hr BEDTIME IV 09/13/17 21:00 09/17/17 21:14 Lactulose (Cephulac) 30 gm THREE TIMES A DAY ORAL 09/12/17 13:00 10/12/17 12:59 09/12/17 16:57 Levofloxacin (Levaquin) 250 mg DAILY ORAL 09/12/17 12:00 09/25/17 11:59 09/13/17 09:10 Levothyroxine Sodium (Synthroid) 75 mcg DAILY@0630 ORAL 09/10/17 06:30 10/10/17 06:29 09/13/17 06:40 Nitroglycerin (Ntg) 0.4 mg Q5M X 3 DOSES PRN SL Prn Chest Pain 09/10/17 06:15 10/10/17 06:14 Ondansetron HCl (Zofran) 4 mg Q6H PRN IVP Nausea & Vomiting 09/10/17 06:15 10/10/17 06:14 Polyethylene Glycol (Miralax) 17 gm HSPRN PRN ORAL Constipation 09/10/17 06:15 10/10/17 06:14 Pregabalin (Lyrica) 50 mg Q12HR ORAL 09/10/17 09:00 10/10/17 08:59 09/13/17 09:07 Sennosides (Senokot) 1 tab DAILY ORAL 09/12/17 10:00 10/12/17 09:59 09/13/17 09:08 Sodium Chloride 1,000 ml @ 100 mls/hr Q10H IV 09/11/17 12:00 10/11/17 11:59 09/13/17 09:10 Tamsulosin HCl (Flomax) 0.4 mg BEDTIME ORAL 09/11/17 21:00 10/11/17 20:59 09/12/17 20:44 Temazepam (Restoril) 15 mg HSPRN PRN ORAL Insomnia 09/10/17 06:15 09/17/17 06:14 09/12/17 21:57 ADAM SILVESTRE Sep 13, 2017 13:01
[2017-09-13] MEDS ORDERED: FLOMAX0.4 MG ORAL (13:04)
[2017-09-13] MEDS ORDERED: LEVAQUIN250 M1 ORAL (13:04)
--- NOTE | 2017-09-13 13:16 | Internal Med Progress Note ---
Subjective Date of Service: Sep 13, 2017 Physician Name Su Rodriguez Attending Physician Gideon Martinez MD Current Medications Medications (Trade) Dose Ordered Sig/Joel Route PRN Reason Start Time Stop Time Status Last Admin Dose Admin Acetaminophen (Tylenol) 650 mg Q4H PRN ORAL fever 09/10/17 06:15 10/10/17 06:14 Acetaminophen (Tylenol) 650 mg Q4H PRN ORAL For Pain 09/10/17 13:00 10/10/17 12:59 Al Hydroxide/Mg Hydroxide (Mylanta II) 30 ml Q6H PRN ORAL dyspepsia 09/10/17 06:15 10/10/17 06:14 Allopurinol (Zyloprim) 100 mg BID ORAL 09/10/17 09:00 10/10/17 08:59 09/13/17 09:09 Amlodipine Besylate (Norvasc) 5 mg DAILY ORAL 09/10/17 09:00 10/10/17 08:59 09/13/17 09:09 Atenolol (Tenormin) 50 mg DAILY ORAL 09/10/17 09:00 10/10/17 08:59 09/13/17 09:10 Dextrose (Dextrose 50%) STAT PRN IV Hypoglycemia 09/10/17 06:15 10/10/17 06:14 Diphenhydramine HCl (Benadryl) 25 mg Q6H PRN ORAL Itching/Pruritis 09/10/17 06:15 10/10/17 06:14 Docusate Sodium (Colace) 100 mg THREE TIMES A DAY ORAL 09/12/17 13:00 10/12/17 12:59 09/13/17 12:53 Duloxetine HCl (Cymbalta) 30 mg DAILY ORAL 09/10/17 09:00 10/10/17 08:59 09/13/17 09:14 Hydralazine HCl (Apresoline) 20 mg BID ORAL 09/10/17 09:00 10/10/17 08:59 09/13/17 09:08 Hydralazine HCl (Apresoline) 50 mg Q4H PRN ORAL For High Blood Pressure 09/12/17 20:45 10/12/17 20:44 09/12/17 20:50 Insulin Aspart (NovoLOG) BEFORE MEALS AND HS SUBQ 09/10/17 06:30 10/10/17 06:29 09/13/17 12:54 Iron Sucrose 100 mg/Sodium Chloride 60 ml @ 240 mls/hr BEDTIME IV 09/13/17 21:00 09/17/17 21:14 Lactulose (Cephulac) 30 gm THREE TIMES A DAY ORAL 09/12/17 13:00 10/12/17 12:59 09/12/17 16:57 Levofloxacin (Levaquin) 250 mg DAILY ORAL 09/12/17 12:00 09/25/17 11:59 09/13/17 09:10 Levothyroxine Sodium (Synthroid) 75 mcg DAILY@0630 ORAL 09/10/17 06:30 10/10/17 06:29 09/13/17 06:40 Nitroglycerin (Ntg) 0.4 mg Q5M X 3 DOSES PRN SL Prn Chest Pain 09/10/17 06:15 10/10/17 06:14 Ondansetron HCl (Zofran) 4 mg Q6H PRN IVP Nausea & Vomiting 09/10/17 06:15 10/10/17 06:14 Polyethylene Glycol (Miralax) 17 gm HSPRN PRN ORAL Constipation 09/10/17 06:15 10/10/17 06:14 Pregabalin (Lyrica) 50 mg Q12HR ORAL 09/10/17 09:00 10/10/17 08:59 09/13/17 09:07 Sennosides (Senokot) 1 tab DAILY ORAL 09/12/17 10:00 10/12/17 09:59 09/13/17 09:08 Sodium Chloride 1,000 ml @ 100 mls/hr Q10H IV 09/11/17 12:00 10/11/17 11:59 09/13/17 09:10 Tamsulosin HCl (Flomax) 0.4 mg BEDTIME ORAL 09/11/17 21:00 10/11/17 20:59 09/12/17 20:44 Temazepam (Restoril) 15 mg HSPRN PRN ORAL Insomnia 09/10/17 06:15 09/17/17 06:14 09/12/17 21:57 Allergies: Coded Allergies: MORPHINE (Verified Allergy, Unknown, 09/10/17) ROS Limited/Unobtainable: No Constitutional: Reports: no symptoms HEENT: Reports: no symptoms Cardiovascular: Reports: no symptoms Respiratory: Reports: no symptoms Gastrointestinal/Abdominal: Reports: no symptoms Genitourinary: Reports: no symptoms Neurologic/Psychiatric: Reports: no symptoms Subjective 81 YO M admitted with diarrhea and dehydration. Now renal failure. Await vascular surgery consult for AAA. Cover for Int Tu-Dr Martinez Objective Last Vital Signs Date Time Temp Pulse Resp B/P (MAP) Pulse Ox O2 Delivery O2 Flow Rate FiO2 09/13/17 09:10 62 177/74 09/13/17 04:00 97.9 18 97 Room Air Laboratory Tests Test 09/13/17 10:30 White Blood Count 6.5 K/UL (4.8-10.8) Red Blood Count 4.24 M/UL (4.70-6.10) L Hemoglobin 13.3 G/DL (14.2-18.0) L Hematocrit 39.6 % (42.0-52.0) L Mean Corpuscular Volume 94 FL (80-99) Mean Corpuscular Hemoglobin 31.4 PG (27.0-31.0) H Mean Corpuscular Hemoglobin Concent 33.6 G/DL (32.0-36.0) Red Cell Distribution Width 13.4 % (11.6-14.8) Platelet Count 175 K/UL (150-450) Mean Platelet Volume 8.8 FL (6.5-10.1) Neutrophils (%) (Auto) 64.9 % (45.0-75.0) Lymphocytes (%) (Auto) 19.6 % (20.0-45.0) L Monocytes (%) (Auto) 9.9 % (1.0-10.0) Eosinophils (%) (Auto) 4.3 % (0.0-3.0) H Basophils (%) (Auto) 1.3 % (0.0-2.0) Erythrocyte Sedimentation Rate 53 MM/HR (0-30) H Sodium Level 137 MMOL/L (136-145) Potassium Level 4.1 MMOL/L (3.5-5.1) Chloride Level 102 MMOL/L (98-107) Carbon Dioxide Level 27 MMOL/L (21-32) Anion Gap 8 mmol/L (5-15) Blood Urea Nitrogen 20 mg/dL (7-18) H Creatinine 1.5 MG/DL (0.55-1.30) H Estimat Glomerular Filtration Rate mL/min (>60) Glucose Level 143 MG/DL (74-106) H Calcium Level 9.6 MG/DL (8.5-10.1) Phosphorus Level 2.8 MG/DL (2.5-4.9) Magnesium Level 2.0 MG/DL (1.8-2.4) Total Bilirubin 0.3 MG/DL (0.2-1.0) Aspartate Amino Transf (AST/SGOT) 15 U/L (15-37) Alanine Aminotransferase (ALT/SGPT) 23 U/L (12-78) Alkaline Phosphatase 67 U/L (46-116) Total Protein 6.2 G/DL (6.4-8.2) L Albumin 3.1 G/DL (3.4-5.0) L Globulin 3.1 g/dL Albumin/Globulin Ratio 1.0 (1.0-2.7) Microbiology Date/Time Source Procedure Growth Status 09/11/17 09:30 Urine,Clean Catch Urine Culture - Preliminary NO GROWTH AFTER 24 HOURS Resulted Intake and Output 09/12/17 09/13/17 19:00 07:00 Intake Total 1850 ml 1300 ml Output Total 1100 ml 1700 ml Balance 750 ml -400 ml Intake Oral 650 ml 500 ml IV Total 1200 ml 800 ml Output Urine Total 1100 ml 1700 ml # Bowel Movements 4 Objective General Appearance: WD/WN, no apparent distress, alert EENT: PERRL/EOMI, normal ENT inspection Neck: non-tender, normal alignment, supple, normal inspection Cardiovascular: normal peripheral pulses, normal rate, regular rhythm, no gallop/murmur, no JVD Respiratory/Chest: chest wall non-tender, lungs clear, normal breath sounds, no respiratory distress, no accessory muscle use Abdomen: normal bowel sounds, non tender, soft, no organomegaly, no mass Extremities: normal range of motion 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 (11) Dehydration Assessment & Plan: Continue IV fluids. (12) Abdominal aortic aneurysm (AAA) 3.0 cm to 5.5 cm in diameter in male Assessment & Plan: Await vascular surgery consult. (13) Diarrhea Assessment & Plan: Stool cultrue=pseudamonas. See ID recs. SU RODRIGUEZ Sep 13, 2017 13:16
[2017-09-13 14:45] VITALS: BP 177/77
[2017-09-13] MEDS ORDERED: Iron Sucrose 100 MG in NS 55 ML IV SCH (21:00)
--- NOTE | 2017-09-14 11:44 | Discharge Summary ---
Discharge Summary Hospital Course Date of Admission Sep 10, 2017 at 06:17 Date of Discharge Sep 13, 2017 at 16:25 Admitting Diagnosis Dehydration. colitis. LISY Smith is a 81 year old male who was admitted on Sep 10, 2017 at 06:17 for Dehydration,Colitis Hospital Course dc summary #[id number] Discharge Medications New Medications: Levofloxacin* (Levaquin*) 250 Mg Tablet 250 MG ORAL DAILY for 10 Days, TAB Tamsulosin HCl (Flomax) 0.4 Mg Cap.er.24h 0.4 MG ORAL BEDTIME for 30 Days, CAP Continued Medications: Allopurinol* (Allopurinol*) 100 Mg Tablet 100 MG ORAL BID, TAB Amlodipine Besylate* (Amlodipine Besylate*) 10 Mg Tablet 0.5 TAB ORAL BID, TAB Atenolol* (Tenormin*) 50 Mg Tablet 50 MG ORAL DAILY, TAB Duloxetine Hcl* (Cymbalta*) 30 Mg Capsule.dr 30 MG ORAL DAILY, CAP Hydralazine Hcl* (Hydralazine Hcl*) 50 Mg Tablet 2 TAB ORAL BID, TAB Levothyroxine Sodium* (Levothyroxine Sodium*) 25 Mcg Tablet 1.5 TAB ORAL DAILY, TAB Take in the morning on an empty stomach, at least 30 minutes before food. Linagliptin (Tradjenta) 5 Mg Tablet 0.5 TAB PO BID, TAB Pregabalin (Lyrica) 50 Mg Capsule 50 MG ORAL BID, CAP Discharge Condition Upon Discharge: stable Discharge Disposition Patient was discharged to Home (01) Discharge Diagnoses: Discharge Instructions Discharge Instructions Special Instructions I have been assigned to complete a D/C Summary on this account. I was not involved in the patient management Jayda Park NP (Vanchtein) Sep 14, 2017 11:44
--- NOTE | 2017-09-14 13:14 | Diagnostic Imaging Report ---
APPROVED REPORT CPT Code: 99315 Present Symptoms Comments: R/O DVT BILATERAL: Imaging reveals a patent deep venous system bilaterally. There is no evidence of thrombus within the femoral, popliteal or tibial segments. The greater saphenous veins are also within normal limits. Doppler indicates normal spontaneous flow within these segments.
--- NOTE | 2017-09-15 03:30 | Discharge Summary 2 SIG ---
DATE OF ADMISSION: 09/10/2017 DATE OF DISCHARGE: 09/13/2017 REASON FOR ADMISSION: 81-year-old male with a history of diabetes, coronary artery disease, and hypertension, presented from home with complaints of profuse watery diarrhea for three days as well as the weakness and near syncope. He reported generalized weakness and abdominal cramps. He felt lightheaded and near syncope, but did not lose his consciousness while sitting on the toilet and felt better when he was lying down. Per newsagent, the patient was hypotensive. Upon evaluation in the emergency room, blood pressure was stable. No recent antibiotic use. Vital signs were stable. WBC -12.2, hemoglobin- 12.4, and hematocrit -36.5. BUN -34 and creatinine -2.0. Troponin was negative. Albumin -3.2. CT of the abdomen and pelvis revealed colonic diverticulosis, enlarged prostate gland, and mild circumferential wall thickening of the sigmoid and rectum. No evidence of diverticulitis. 5.1 cm saccular infrarenal abdominal aortic aneurysm. Bilateral renal cysts. EKG showed normal sinus rhythm. No acute ischemic changes. Urinalysis was suggestive of urinary tract infection. The patient was admitted with diagnoses of dehydration, acute kidney injury, acute colitis, near syncope, protracted diarrhea, probably urinary tract infection, and diverticulosis. HOSPITAL COURSE: The patient was admitted. The patient was on the IV fluids. ID and GI consults were requested. Stool culture was negative. Stool for C. difficile was negative. Urine culture showed gram-positive organism more than 100,000. A repeated urine culture revealed also gram-positive organism with colony count only 10 to 20. The patient was on empiric antibiotics for presumed acute colitis, which resolved. GI closely followed the patient. GI recommended colonoscopy, however, the patient refused and decided to discuss with his primary care provider prior doing it. Diet was slowly advanced and patient was able to tolerate diet. Electrolytes were closely monitored and corrected as needed. Anemia workup was consistent with anemia of chronic disease. Hemoglobin and hematocrit were closely monitored. No need for transfusion unless symptomatic or hemoglobin below 7. Stool OB was negative. TSH was within normal limits. The patient was started on PPI and DVT prophylaxis. TSH was within normal limits. Continue current dose of levothyroxine. Blood pressure medication resumed later when blood pressure was stable. Blood sugar was managed with sliding scale of insulin. Diarrhea resolved. Symptomatic treatment. Antidiarrheal provided as needed. Recommended serial monitoring of aortic aneurysm with ultrasound every six months. Renal ultrasound revealed multiple bilateral simple-appearing renal cysts with conglomerate lesion in the upper pole of the right kidney measuring 4.9 x 4.4 cm not definitely cystic in nature. Recommended to have contrast-enhanced CT or MRI to exclude the possibility of malignancy. Markedly enlarged prostate with 7.4 by 6.1 cm noted. Abdominal ultrasound revealed no evidence of gallstones to suggest acute cholecystitis. Multiple bilateral simple-appearing renal cysts. Conglomerate lesion in the upper pole of right kidney measuring 4.9 x 4.4 cm, not definitely cystic in nature. Family declined the MRI to be done. Unable to do the CT with the contrast secondary to renal failure. With hydration, BUN from 34 down to 20 and creatinine from 2.0 down to 1.5. The patient likely had acute kidney injury with element of chronic renal insufficiency. Venous duplex of bilateral lower extremity was negative. Hemoglobin and hematocrit were closely monitored and remained stable. The patient was placed on Flomax due to possible urinary obstruction. Prior to discharge, hemoglobin -13.3 and hematocrit -39.6. Noted elevated ESR -53. Coag profile was stable. Hemoglobin A1 -7.0, at goal. Near syncope episode was likely brought by hypotension and dehydration. Syncope was apparently vasovagal that occurred when the patient was on the toilet and was hypotensive at that time and dehydrated due to diarrhea. The patient was stable for discharge home and follow up with the primary care provider. DISCHARGE MEDICATIONS: See medication reconciliation list. The patient was placed on Flomax to improve voiding. Continue all other medication as outlined in medication reconciliation list. DISCHARGE INSTRUCTIONS: The patient was discharged home. Follow up with the primary care provider to discuss recommended colonoscopy. Reconsider to have outpatient MRI for right kidney lesion FINAL DIAGNOSES: 1. Acute colitis, resolving. 2. Dehydration. 3. Near syncope due to hypotension and dehydration 4. Acute kidney injury. 5. Protracted diarrhea, resolved. 6. Acute kidney injury, improved. 7. Diverticulosis. 8. Diabetes. 9. Saccular infrarenal aortic abdominal aneurysm 5.1 cm . 10. Hypertension. 11. Hypothyroidism. 12. Urinary retention. 13. Possible urinary obstruction secondary to prostatomegaly. Gideon Martinez M.D. I have been assigned to dictate discharge summary on this account and I was not involved in the patient's management. Jayda PatelErin díaz DR: MARLEY JOB#: [id number] CC: THOMAS
--- NOTE | 2017-09-23 00:30 | Consultation ---
DATE OF CONSULTATION: 09/13/2017 REASON FOR CONSULTATION: Abdominal aortic aneurysm. HISTORY OF PRESENT ILLNESS: This is a very pleasant 81-year-old gentleman that I was asked to evaluate in regards to his newly discovered aortic abdominal aneurysm. The patient was seen and evaluated and a full history and physical exam was done. In summary, I discussed with the patient the presence of his aneurysm and the need for further evaluation, which would be a CT angio. However, at this point in time, the patient does not want to have any surgical procedures done and obviously no need for further evaluation is present. I have discussed with the patient the fact that if he changes mind, we will need to do workup and then reevaluate him for possible surgery, which will consist of stent placement. In the meantime, I recommend continuing same medical management, which consisted keeping the blood pressure control using beta-blockers for the heart rate. Oleksandr Dietrich M.D. DR: Travis JOB#: [id number] CC:
== END 2017-09-13 16:25 | disposition home or self-care (01) | DRG 683 ==
LOC: EDBD 03:02 → EMR 03:57 → 4E 06:17 → EDBEDREQ 06:25 → 4E 16:36 → 3E 09-11 13:23
DX: N17.9 Acute kidney failure, unspecified (principal); N39.0 Urinary tract infection, site not specified; I95.9 Hypotension, unspecified; E86.0 Dehydration; E11.9 Type 2 diabetes mellitus without complications; N13.8 Other obstructive and reflux uropathy; N28.1 Cyst of kidney, acquired; D64.9 Anemia, unspecified; K52.9 Noninfective gastroenteritis and colitis, unspecified; R55 Syncope and collapse; K57.90 Diverticulosis of intestine, part unspecified, without perforation or abscess without bleeding; I10 Essential (primary) hypertension; E03.9 Hypothyroidism, unspecified; I25.10 Atherosclerotic heart disease of native coronary artery without angina pectoris; Z88.6 Allergy status to analgesic agent; Z79.84 Long term (current) use of oral hypoglycemic drugs; I71.4 Abdominal aortic aneurysm, without rupture; N40.1 Benign prostatic hyperplasia with lower urinary tract symptoms; R33.8 Other retention of urine; R10.9 Unspecified abdominal pain; E78.00 Pure hypercholesterolemia, unspecified; F32.9 Major depressive disorder, single episode, unspecified; Z53.29 Procedure and treatment not carried out because of patient's decision for other reasons
CPT/HCPCS: 36415; 74176; 76700; 76775; 80053; 81001; 81003; 82150; 82270; 82378; 82550; 82607; 82728; 82746; 82962; 83036; 83540; 83550; 83690; 83735; 84100; 84133; 84300; 84439; 84443; 84484; 84550; 85025; 85044; 85610; 85651; 85730; 87045; 87086; 87324; 89050; 93005; 93970; 99285; J1815; J2405